=== PATIENT | male | born 1965 | race Caucasian/White ===

== ENCOUNTER 2023-04-16 15:27 | Observation (INO) | payer BC ==
[2023-04-16] MEDS ORDERED: LORazepam 2 MG/ML VIAL IV ONE (15:41)
[2023-04-16 16:05] LABS: Hematocrit 41.4 % (39.6-49.0); Lymphocytes % 36.3 % (15.3-44.8); MCV 88.7 fL (80-100); MPV 8.3 fL (7.6-11.3); Platelets 165 thou/uL (152-406); RBC Red Blood Cell Count 4.67 M/uL (4.33-5.43)
[2023-04-16 16:21] LABS: Magnesium 1.5 mg/dL (1.6-2.4); Troponin High Sensitivity 10.3 pg/mL (<58.9)
[2023-04-16 16:23] LABS: Potassium 2.6 mEq/L (3.5-5.1)
--- NOTE | 2023-04-16 16:39 | RAD REPORT ---
EXAM DESCRIPTION: Lucas Single View04/16/2023 4:08 pm CLINICAL HISTORY: Chest pain;Dyspnea COMPARISON: ABDOMEN ACUTE SERIES dated 11/16/2009 TECHNIQUE: Portable AP view of the chest. FINDINGS: The lungs are clear. Right diaphragmatic eventration again seen. No pneumothorax or effus ion. The cardiomediastinal contours are unremarkable. IMPRESSION: No acute cardiopulmonary process.
[2023-04-16] MEDS ORDERED: POTASSIUM 25 MEQ EFFERV TAB ONE (16:48)
[2023-04-16] MEDS ORDERED: KCL 20 MEQ/100 mL IVPB 100 ML IV ONE (16:49)
--- NOTE | 2023-04-16 17:25 | RAD REPORT ---
EXAM DESCRIPTION: CT - Chest For Pe Angio - 04/16/2023 4:43 pm CLINICAL HISTORY: Chest pain;Dyspnea COMPARISON: Chest Single View dated 04/16/2023 TECHNIQUE: Thin axial CT images of the chest were obtained following administration of 100 mL Isovue 370 IV contrast. Multiplanar reconstructions, and maximum intensity projection reconstructions were generated and reviewed. Exam utilizes a protocol for optimal evaluation of pulmonary arterial tree. All CT scans are performed using dose optimization technique as appropriate and may include automated exposure control or mA/KV adjustment according to patient size. FINDINGS: Pulmonary arteries are normal. No emboli or other suspicious finding. No acute or signific ant aorta findings. Ascending aorta is at the upper limit of normal, measuring 4 cm. No mass or infiltrate in the lung parenchyma. No pleural thickening or pleural effusion. No pneumotho rax. No abnormal mediastinal or hilar masses or lymphadenopathy seen. No chest wall mass or abnormal axill iary lymphadenopathy. Diffuse hepatic parenchymal hypoattenuation suggesting steatosis. IMPRESSION: No evidence of acute central pulmonary emboli. No other acute pulmonary findings. Diffuse hepatic steatosis.
[2023-04-16] MEDS ORDERED: NA CHLORIDE 0.9% 1,000 ML ONE (17:50)
--- NOTE | 2023-04-16 17:52 | EDPHYS ---
[facility] Name: Davion Andrade Age: 58 yrs Sex: Male : 1965 Arrival Date: 04/16/2023 Time: 15:27 Bed 3 Private MD: ED Physician Anurag Adan HPI: 04/16 15:51 This 58 yrs old Male presents to ER via Unassigned with complaints of Palpitations. ms3 15:51 58-year-old male with past medical history of hypertension presents for chest pain that ms3 began 30 minutes prior to arrival. Patient states his heart is fluttering. EMS gave patient 324 mg aspirin, 0.4 mg nitro. Patient states he is having shortness of breath, diarrhea, chills, left arm tingling. Patient denies nausea or vomiting.. Historical: - Allergies: 15:53 No Known Allergies; ld1 - PMHx: 15:53 Hypertensive disorder; ld1 - PSHx: 15:53 None; ld1 - Immunization history:: Adult Immunizations up to date. - Social history:: Smoking status: Patient denies any tobacco usage or history of. Patient/guardian denies using alcohol. ROS: 15:51 Constitutional: Negative for fever, and chills. Neck: Negative for injury, pain, and ms3 swelling. 15:51 Respiratory: Negative for shortness of breath, cough, wheezing, and pleuritic chest pain, Abdomen/GI: Negative for abdominal pain, nausea, vomiting, diarrhea, and constipation, MS/Extremity: Negative for injury and deformity, Skin: Negative for injury, rash, and discoloration. 15:51 Cardiovascular: Positive for chest pain, palpitations. 15:51 All other systems are negative. Exam: 15:51 Constitutional: This is a well developed, well nourished patient who is awake, alert, ms3 and in no acute distress. Head/Face: Normocephalic, atraumatic. Neck: Trachea midline, no cervical lymphadenopathy. Supple, full range of motion without nuchal rigidity, or vertebral point tenderness. No Meningismus. Chest/axilla: Normal chest wall appearance and motion. Nontender with no deformity. 15:51 Respiratory: Lungs have equal breath sounds bilaterally, clear to auscultation and percussion. No rales, rhonchi or wheezes noted. No increased work of breathing, no retractions or nasal flaring. Abdomen/GI: Soft, non-tender, with normal bowel sounds. No distension or tympany. No guarding or rebound. No evidence of tenderness throughout. Skin: Warm, dry with normal turgor. Normal color with no rashes, no lesions, and no evidence of cellulitis. MS/ Extremity: Pulses equal, no cyanosis. Neurovascular intact. Full, normal range of motion. 15:51 Cardiovascular: Rate: tachycardic, Rhythm: regular, Pulses: no pulse deficits are appreciated, Heart sounds: normal, normal S1and S2. 16:33 ECG was reviewed by the Attending Physician. ms3 Vital Signs: 15:52 BP 208 / 108; Pulse 140; Resp 40; Temp 98.1(O); Pulse Ox 100% on R/A; Weight 89 kg; ld1 Height 5 ft. 10 in. ; Pain 8/10; 15:57 BP 163 / 88; Pulse 95; Resp 22; Pulse Ox 100% on R/A; ld1 17:02 BP 160 / 100; Pulse 94; Resp 19; Pulse Ox 99% on R/A; ld1 17:49 BP 155 / 104; Pulse 90; Resp 18; Pulse Ox 99% on R/A; ld1 19:10 BP 160 / 116; Pulse 84; Resp 18; Pulse Ox 100% ; vc1 15:52 Body Mass Index 28.15 (89.00 kg, 177.8 cm) ld1 15:52 Pain Scale: Adult ld1 MDM: 15:35 Patient medically screened. ms3 15:51 Differential diagnosis: abnormal EKG, acute myocardial infarction, anxiety, coronary ms3 artery disease pulmonary embolus. 17:51 Data reviewed: vital signs, nurses notes, lab test result(s), EKG, radiologic studies, ms3 and as a result, I will admit patient. Consideration of Admission/Observation Patient was admitted/placed on observation. Management of patient was discussed with the following: Hospitalist: Randal Figueroa, nurse practitioner on behalf of Dr. Eli. I considered the following discharge prescriptions or medication management in the emergency department Antivirals: At this time, antivirals are not recommended. Independent interpretation of the following test(s) in the Emergency Department EKG: See my EKG interpretation above X-Ray: My interpretation is Chest x-ray image reviewed by me does not reveal pneumonia. Historians other than the Patient: EMS: [facility]. Counseling: I had a detailed discussion with the patient and/or guardian regarding the historical points, exam findings, and any diagnostic results supporting the discharge/admit diagnosis, lab results, radiology results, the need for outpatient follow up, to return to the emergency department if symptoms worsen or persist or if there are any questions or concerns that arise at home. ED course: Discussed labs imaging, EKG with patient and his . They understand and agree with observation. 04/16 15:37 Order name: Basic Metabolic Panel; Complete Time: 16:32 ms3 04/16 15:37 Order name: CBC with Diff; Complete Time: 16:32 ms3 04/16 15:37 Order name: Magnesium; Complete Time: 16:32 ms3 04/16 15:37 Order name: Troponin HS; Complete Time: 16:32 ms3 04/16 15:37 Order name: XRAY Chest (1 view); Complete Time: 17:31 ms3 04/16 15:37 Order name: CT Chest For PE Angio; Complete Time: 17:31 ms3 04/16 15:37 Order name: EKG; Complete Time: 15:38 ms3 04/16 15:37 Order name: Cardiac monitoring; Complete Time: 15:38 ms3 04/16 15:37 Order name: EKG - Nurse/Tech; Complete Time: 15:38 ms3 04/16 15:37 Order name: IV Saline Lock; Complete Time: 15:38 ms3 04/16 15:37 Order name: Labs collected and sent; Complete Time: 16:02 ms3 04/16 15:37 Order name: O2 Per Protocol; Complete Time: 15:38 ms3 04/16 15:37 Order name: O2 Sat Monitoring; Complete Time: 15:39 ms3 EC:33 Rate is 143 beats/min. Rhythm is regular. QRS Graham is Normal. QRS interval is normal. ms3 Clinical impression: Sinus tachycardia. Interpreted by me. Reviewed by me. Administered Medications: 15:38 Drug: NS 0.9% IV 500 ml Route: IV; Rate: bolus; Site: left antecubital; ld1 15:38 Drug: Ativan IVP 1 mg Route: IVP; Site: left antecubital; ld1 17:01 Drug: Potassium PO Effervescent Tablet 50 mEq Route: PO; ko1 17:01 Drug: Potassium Chloride IV 20 mEq Route: IV; Rate: calculated rate; Site: left ko1 antecubital; 18:10 Drug: Magnesium Sulfate IVPB 1 grams Route: IVPB; Infused Over: 1 hrs; Site: left ko1 antecubital; Disposition Summary: 04/16/23 17:51 Hospitalization Ordered Hospitalization Status: Observation ms3 Provider: Maikol Eli ms3 Location: Telemetry/MedSurg (observation) ms3 Condition: Stable ms3 Problem: new ms3 Symptoms: are unchanged ms3 Bed/Room Type: Standard ms3 Room Assignment: 222(04/16/23 19:36) cg Diagnosis - Chest pain, unspecified ms3 - Hypokalemia ms3 Forms: - Medication Reconciliation Form ms3 - SBAR form ms3 - Leadership Thank You Letter ms3 Signatures: Dispatcher [employer] EDMS Randal Figueroa, SHANNANC ALEXANDER-[facility] Lashae Benson RN RN cg Anurag Adan DO DO ms3 Zehra Adan RN RN ld1 Smiley Norton RN RN ko1 Corrections: (The following items were deleted from the chart) 19:36 17:51 ms3 cg
--- NOTE | 2023-04-16 17:52 | ER ---
Nurse's Notes [facility] Name: Davion Andrade Age: 58 yrs Sex: Male : 1965 Arrival Date: 04/16/2023 Time: 15:27 Bed 3 Private MD: Diagnosis: Chest pain, unspecified;Hypokalemia Presentation: 04/16 15:52 Chief complaint: EMS states: toned out for pt "feeling funny." Pt reports feeling heart ld1 racing - states "I have been under a lot of stress." Upon arrival to ER pt HR 140. Coronavirus screen: At this time, the client does not indicate any symptoms associated with coronavirus-19. Ebola Screen: No symptoms or risks identified at this time. Initial Sepsis Screen: Does the patient meet any 2 criteria? No. Patient's initial sepsis screen is negative. Does the patient have a suspected source of infection? No. Patient's initial sepsis screen is negative. Risk Assessment: Do you want to hurt yourself or someone else? Patient reports no desire to harm self or others. Onset of symptoms was April 16, 2023. 15:52 Method Of Arrival: Ambulatory ld1 15:52 Acuity: BRAYDEN 2 ld1 Triage Assessment: 15:30 General: Appears in no apparent distress. comfortable, Behavior is cooperative, ld1 anxious. Pain: Complains of pain in chest Pain does not radiate. Pain currently is 8 out of 10 on a pain scale. Quality of pain is described as sharp, throbbing, Pain began suddenly, Is continuous. EENT: No signs and/or symptoms were reported regarding the EENT system. Neuro: Level of Consciousness is awake, alert, obeys commands, Oriented to person, place, time, situation. Cardiovascular: Capillary refill < 3 seconds Patient's skin is warm and dry. Rhythm is sinus tachycardia. 15:30 Respiratory: Airway is patent Respiratory effort is even, labored. GI:. : No signs ld1 and/or symptoms were reported regarding the genitourinary system. Derm: No signs and/or symptoms reported regarding the dermatologic system. Musculoskeletal: No signs and/or symptoms reported regarding the musculoskeletal system. Historical: - Allergies: 15:53 No Known Allergies; ld1 - PMHx: 15:53 Hypertensive disorder; ld1 - PSHx: 15:53 None; ld1 - Immunization history:: Adult Immunizations up to date. - Social history:: Smoking status: Patient denies any tobacco usage or history of. Patient/guardian denies using alcohol. Screenin:[facility] ED Fall Risk Assessment (Adult) History of falling in the last 3 months, ld1 including since admission No falls in past 3 months (0 pts). Abuse screen: Denies threats or abuse. Denies injuries from another. Nutritional screening: No deficits noted. Tuberculosis screening: No symptoms or risk factors identified. Assessment: 15:58 Reassessment: See triage assessment. Pain: Complains of pain in chest Pain does not ld1 radiate. Pain began suddenly. Cardiovascular: Capillary refill < 3 seconds Patient's skin is warm and dry. 17:49 Reassessment: Patient appears in no apparent distress at this time. No changes from ld1 previously documented assessment. Patient is alert, oriented x 3, equal unlabored respirations, skin warm/dry/pink. Patient states symptoms have improved. Cardiovascular: Rhythm is sinus rhythm. Respiratory: Airway is patent Respiratory effort is even, unlabored. 19:10 Reassessment: No changes from previously documented assessment. Patient and/or family vc1 updated on plan of care and expected duration. Pain level reassessed. Vital Signs: 15:52 BP 208 / 108; Pulse 140; Resp 40; Temp 98.1(O); Pulse Ox 100% on R/A; Weight 89 kg; ld1 Height 5 ft. 10 in. ; Pain 8/10; 15:57 BP 163 / 88; Pulse 95; Resp 22; Pulse Ox 100% on R/A; ld1 17:02 BP 160 / 100; Pulse 94; Resp 19; Pulse Ox 99% on R/A; ld1 17:49 BP 155 / 104; Pulse 90; Resp 18; Pulse Ox 99% on R/A; ld1 19:10 BP 160 / 116; Pulse 84; Resp 18; Pulse Ox 100% ; vc1 15:52 Body Mass Index 28.15 (89.00 kg, 177.8 cm) ld1 15:52 Pain Scale: Adult ld1 ED Course: 15:29 Patient arrived in ED. kj1 15:30 Arm band placed on right wrist. EKG completed in triage. Results shown to MD. ld1 15:35 Anurag Adan DO is Attending Physician. ms3 15:51 Zehra Adan, RN is Primary Nurse. ld1 15:53 Triage completed. ld1 15:58 Patient has correct armband on for positive identification. Placed in gown. Bed in low ld1 position. Call light in reach. Side rails up X2. java architect on. Pulse ox on. NIBP on. Door closed. Noise minimized. Warm blanket given. 15:58 No provider procedures requiring assistance completed. Maintain EMS IV. Dressing ld1 intact. Good blood return noted. Site clean \\T\\ dry. Gauge \\T\\ site: 20g LAC. Patient maintains SpO2 saturation greater than 95% on room air. 16:10 XRAY Chest (1 view) In Process Unspecified. EDMS 16:45 CT Chest For PE Angio In Process Unspecified. EDMS 17:51 Maikol Eli MD is Hospitalizing Provider. ms3 19:10 Report received from Sasha RN. vc1 20:34 Patient admitted, IV remains in place. vc1 Administered Medications: 15:38 Drug: NS 0.9% IV 500 ml Route: IV; Rate: bolus; Site: left antecubital; ld1 15:38 Drug: Ativan IVP 1 mg Route: IVP; Site: left antecubital; ld1 17:01 Drug: Potassium PO Effervescent Tablet 50 mEq Route: PO; ko1 17:01 Drug: Potassium Chloride IV 20 mEq Route: IV; Rate: calculated rate; Site: left ko1 antecubital; 18:10 Drug: Magnesium Sulfate IVPB 1 grams Route: IVPB; Infused Over: 1 hrs; Site: left ko1 antecubital; Medication: 20:34 VIS not applicable for this client. vc1 Outcome: 17:51 Decision to Hospitalize by Provider. ms3 20:34 Admitted to Med/surg accompanied by tech, via wheelchair, room 222, Report called to 1 LAWRENCE Garcia 20:34 Condition: good 20:34 Instructed on the need for admit. 20:34 Patient left the ED. vc1 Signatures: Dispatcher [employer] EDMS Hemant IdalmisAnurag Barcenas DO DO ms3 Zehra Adan RN RN ld1 Irma Bacon RN RN vc1 Errol, Smiley, RN RN ko1
[2023-04-16] MEDS ORDERED: MAGNESIUM SULFATE 1 gm IVPB 1 GM/100 ML BAG IV ONE ×2 (18:09→23:44)
--- NOTE | 2023-04-16 18:11 | P.HP ---
Certification for Inpatient Patient admitted to: Observation With expected LOS: <2 Midnights Patient will require the following post-hospital care: None Practitioner: I am a practitioner with admitting privileges, knowledge of patient current condition, hospital course, and medical plan of care. Services: Services provided to patient in accordance with Admission requirements found in Title 42 Section 412.3 of the Code of Federal Regulations Patient History Date of Service: 04/16/23 Reason for admission: Chest pain, hypokalemia History of Present Illness: 58-year-old male with history of hypertension presents emergency department with chief complaint of chest pain. He reports he has been undergoing a lot of stress both personally and related to his career lately which which he has been having difficulty dealing with. He was driving his car today when he had onset of palpitations, left-sided chest pain rating to his left arm associated with tachycardia. He does report being diaphoretic at that time as well upon arrival to the emergency department his heart rate was 140 sinus tachycardia. He was given IV fluids, Ativan, potassium and magnesium in the emergency department and his symptoms have improved significantly his heart rate is down to 90 he is feeling much better. His labs were significant for sodium 132 potassium 2.6 chloride 94 magnesium 1.5 initial high-sensitivity troponin 10.3. ED provider wishes to admit under observation for ACS rule out, hypokalemia. Patient does take valsartan/HCTZ at home for hypertension which is likely contributing to his hypokalemia. - Past Medical/Surgical History -: Hypertension -: None Psychosocial/ Personal History: Patient lives at home with his family, is self- employed. - Family History Family History: Reviewed- Non-Contributory - Social History Smoking Status: Never smoker Alcohol use: Yes CD- Drugs: No Caffeine use: Yes Place of Residence: Home Review of Systems 10-point ROS is otherwise unremarkable Respiratory: Shortness of Breath Cardiovascular: Chest Pain, Palpitations Physical Examination - Physical Exam General: Alert, In no apparent distress, Oriented x3 HEENT: Atraumatic, PERRLA, Mucous membr. moist/pink, EOMI, Sclerae nonicteric Neck: Supple, 2+ carotid pulse no bruit, No LAD, Without JVD or thyroid abnormality Respiratory: Clear to auscultation bilaterally, Normal air movement Cardiovascular: Regular rate/rhythm, Normal S1 S2 Capillary refill: <2 Seconds Gastrointestinal: Normal bowel sounds, No tenderness Musculoskeletal: No tenderness Integumentary: No rashes Neurological: Normal speech, Normal strength at 5/5 x4 extr, Normal tone, Normal affect - Studies Laboratory Data (last 24 hrs) 04/16/23 04/16/23 15:47 15:47 WBC 5.50 Hgb 14.5 Hct 41.4 Plt Count 165 Sodium 132 L Potassium 2.6 L* BUN 12 Creatinine 1.14 Glucose 145 H Magnesium 1.5 L Assessment and Plan - Plan Assessment: Chest pain rule out ACS Hypokalemia, hypomagnesemia Hypertension Plan: Chest pain rule out ACS Patient ports being under a lot of stress lately, this episode started with fluttering/palpitations and chest followed by chest pain. His symptoms improved after receiving IV Ativan. Chest pain-free at this time. Will monitor telemetry, trend troponins, consult cardiology. He has never had a stress test or heart catheterization in the past. Continue aspirin, statin. As needed benzodiazepines for anxiety. Hypokalemia, hypomagnesemia Replaced in ED, protocol in place, recheck potassium tonight. Hypertension Hold valsartan/HCTZ given hypokalemia, hypomagnesemia. Restart home medications. May need adjustment of medications at discharge. DVT PPX: Lovenox Code status: Full Discharge Plan: Home Plan to discharge in: 24 Hours - Advance Directives Does patient have a Living Will: No Does patient have a Durable POA for Healthcare: No - Code Status/Comfort Care Code Status Assessed: Yes (Full code) Critical Care: No Time Spent Managing Pts Care (In Minutes): 55
[2023-04-16] MEDS ORDERED: ONDANSETRON 4 MG/2 ML VIAL IV PRN (19:57)
[2023-04-16] MEDS ORDERED: ALPRAZOLAM 0.25 MG TABLET PO PRN (19:57)
[2023-04-16] MEDS ORDERED: MELATONIN 5 MG TABLET PO PRN (19:57)
[2023-04-16] MEDS ORDERED: ATORVASTATIN 40 MG TAB PO SCH (21:00)
[2023-04-16 21:03] VITALS: BMI 29.5
[2023-04-16 21:21] VITALS: O2SAT 100
[2023-04-16 22:57] LABS: Magnesium 1.8 mg/dL (1.6-2.4); Potassium 3.6 mEq/L (3.5-5.1)
[2023-04-16] MEDS ORDERED: POTASSIUM 25 MEQ EFFERV TAB PO ONE (23:43)
[2023-04-17 03:50] LABS: Absolute Lymphocytes (CBC) 2.2 K/uL (0.7-4.9); Hematocrit 37.5 % (39.6-49.0); Lymphocytes % 42.2 % (15.3-44.8); MCV 88.9 fL (80-100); MPV 8.5 fL (7.6-11.3); Platelets 156 thou/uL (152-406); RBC Red Blood Cell Count 4.22 M/uL (4.33-5.43)
[2023-04-17 04:20] LABS: Magnesium 2.3 mg/dL (1.6-2.4); Potassium 3.6 mEq/L (3.5-5.1); Thyroid Stimulating Hormone 1.23 uIU/mL (0.358-3.740); Troponin High Sensitivity 17.6 pg/mL (<58.9)
[2023-04-17 08:53] VITALS: BP 154/102; TEMP 97.7
--- NOTE | 2023-04-17 08:55 | P.DS ---
Admission Date: 04/16/23 Discharge Date: 04/17/23 Disposition: ROUTINE DISCHARGE Discharge Condition: GOOD Reason for Admission: Chest pain, hypokalemia Consultations: 1. Cardiology Hospital Course: DIAGNOSES: # Chest Pain, noncardiac # Hypertensive Urgency # Hypokalemia/Hypomagnesemia secondary to Hydrochlorothiazide # Diffuse Hepatic Steatosis HOSPITAL COURSE: Mr. Davion Andrade is a 58 year old male with a past medical history significant for hypertension who was admitted to the [facility] on 04/16/2023 for chest pain. He was admitted to the Medicine service. Upon further evaluation, he reported an episode of chest discomfort directly associated with significant life stressors (relationship and business-related stress). His EKG was without STEMI criteria. His serial troponin was 10.3 -> 17.6 -> 19.0. Her chest x-ray revealed, "no acute cardiopulmonary process." His CT chest angiogram revealed, "No evidence of acute central pulmonary emboli. No other acute pulmonary findings. Diffuse hepatic steatosis." Over the course of his hospitalization, his symptoms have improved significantly. He stated that he felt well and would like to be discharged this morning. Cardiology was consulted and he was evaluated by Dr. Ramey. He has cleared him for discharge with outpatient follow-up. He was offered a Psychiatry consultation for coping with life stressors. He denied suicidal ideation, intention, or plan. He stated that he felt well this morning and he denied any symptoms this morning prior to discharge. On 04/17/2023, he was seen on morning rounds and deemed medically stable for discharge. He was discharged with instructions to schedule follow-up appointments with his PCP (Dr. Kohler), with Cardiology (Dr. Ramey), with Gastroenterology (Dr. Naik), and with Psychiatry (Dr. Nunes). He was provided a prescription for valsartan. He was advised to discontinue his valsartan-hydrochlorothiazide. He was given the opportunity to ask questions and reported no further questions. Furthermore, all questions were answered to the best of my ability. A copy of this discharge summary will be sent to the above providers to facilitate continuity of care. Today, I personally spent 25 minutes on his case, of which greater than 50% of the time was spent in patient education, counseling, and coordination of care as described above. Vital Signs/Physical Exam: Temp Pulse Resp BP Pulse Ox 97.7 F 70 18 154/102 H 98 04/17/23 08:00 04/17/23 08:00 04/17/23 08:00 04/17/23 08:00 04/17/23 08:00 General: Alert, In no apparent distress, Oriented x3 HEENT: Atraumatic, Mucous membr. moist/pink, Sclerae nonicteric Neck: JVD not distended Respiratory: Clear to auscultation bilaterally, Normal air movement Cardiovascular: No edema, Regular rate/rhythm, Normal S1 S2, No gallops, No rubs, No murmurs Gastrointestinal: Normal bowel sounds, Soft and benign, Non-distended, No tenderness, No rebound, No guarding Musculoskeletal: No clubbing Integumentary: No rashes Neurological: Normal speech, Normal affect Laboratory Data at Discharge: WBC 5.20 thou/uL (4.3-10.9) 04/17/23 02:10 Hgb 13.3 g/dL (13.6-17.9) L D 04/17/23 02:10 Hct 37.5 % (39.6-49.0) L 04/17/23 02:10 Plt Count 156 thou/uL (152-406) 04/17/23 02:10 Sodium 133 mEq/L (136-145) L 04/17/23 02:10 Potassium 3.6 mEq/L (3.5-5.1) 04/17/23 02:10 BUN 14 mg/dL (7-18) 04/17/23 02:10 Creatinine 0.85 mg/dL (0.70-1.30) 04/17/23 02:10 Glucose 110 mg/dL (74-106) H 04/17/23 02:10 Magnesium 2.3 mg/dL (1.6-2.4) 04/17/23 02:10 Triglycerides 87 mg/dL (<150) 04/17/23 02:10 Cholesterol 145 mg/dL (<200) 04/17/23 02:10 HDL Cholesterol 45 mg/dL (40-60) 04/17/23 02:10 Cholesterol/HDL Ratio 3.22 04/17/23 02:10 Home Medications: RX: cloNIDine HCL [Clonidine HCl] 1 tab PO DAILY 04/16/23 Aspirin [Aspirin EC 81 MG] 81 mg PO DAILY #30 04/17/23 RX: Valsartan 160 mg PO DAILY #30 tab 04/17/23 New Medications: Aspirin [Aspirin EC 81 MG] 81 mg PO DAILY #30 RX: Valsartan 160 mg PO DAILY #30 tab Physician Discharge Instructions: 1. Please call and schedule a follow-up appointment with your PCP (Dr. Kohler) in 3-5 days 2. Please call and schedule a follow-up appointment with Gastroenterology (Dr. Naik) in 5-7 days - Your imaging showed that you have a fatty liver. Please follow-up with Dr. Naik for further evaluation. 3. Please call and schedule a follow-up appointment with Cardiology (Dr. Ramey) in 5-7 days 4. Please call and schedule a follow-up appointment with Psychiatry (Dr. Ervin) in 5-7 days - Please stop taking valsartan-hydrochlorothiazide. Your prescription has been changed to valsartan only. You were provided a 1 month prescription. Please have your PCP provide any medication refills/adjustments. Diet: AHA Activity: Ad cornelius Followup: Christopher Nunes [ACTIVE - CAN ADMIT] - Juarez Ramey MD [ACTIVE - CAN ADMIT] - Ulysses Naik MD [OUTSIDE PHYSICIAN] - Jona Kohler MD [OUTSIDE PHYSICIAN] - Time spent managing pt's care (in minutes): 25
[2023-04-17] MEDS ORDERED: ENOXAPARIN 40 MG/0.4 ML SQ SCH (09:00)
[2023-04-17] MEDS ORDERED: POTASSIUM CL SA 10 MEQ TAB PO ONE (09:00)
[2023-04-17] MEDS ORDERED: ASPIRIN EC 81 MG TAB PO SCH (09:00)
--- NOTE | 2023-04-17 15:23 | EKG ---
Test Date: 2023-04-16 Test Time: 15:29:57 [employer] Edge Inker Machine: Anish CASTRO MEASUREMENT RESULTS: Intervals: Rate: 143 LA: 96 QRSD: 94 QT: 374 QTc: 577 [place]: P: LA: 96 QRS: 34 T: 68 INTERPRETIVE STATEMENTS: Sinus tachycardia with short LA with premature atrial complexes Junctional ST depression, probably normal Borderline ECG Compared to ECG 09/07/2003 23:13:00 Atrial premature complex(es) now present Short LA interval now present ST (T wave) deviation now present Sinus bradycardia no longer present Electronically Signed On 04-17-23 15:21:12 CDT by Juarez Ramey
--- NOTE | 2023-04-18 17:24 | CON ---
Date of Consultation: 04/17/2023 Reason For Consultation: Chest pain. History Of Present Illness: 58-year-old male, history of hypertension, presented with chest pain, re trosternal, feels heavy and ache like while he was driving the car and had some palpitations, had to stop. Pain became severe. So he presented to the emergency room. Patient denies having any exertio nal chest pain at that time or shortness of breath. No nausea, vomiting, or diaphoresis. Past Medical History: Hypertension. Medications: Refer to reconciliation sheet for detailed list. Allergies: NO KNOWN DRUG ALLERGIES. Family History: No premature coronary artery disease or cancer. Social History: Does not smoke or drink. Does not use any drugs. Review of Systems: All systems were reviewed, they were negative except what was mentioned in HPI. Physical Examination: Vital Signs: Reviewed. Head and Neck: Pupils are equal, reactive to light. Intact eye movements. No JVD. No cervical lym phadenopathy. Neck is supple. Thyroid is not enlarged. Lungs: Clear to auscultation bilaterally. No rhonchi, wheezing, or crackles. No accessory muscle u se. Heart: Regular rate and rhythm. No extra sounds. Abdomen: Soft, nontender. Bowel sounds positive. No organomegaly. No masses or hernia. No rigidi ty or rebound. Extremities: No edema, clubbing, or cyanosis. Intact pulses. Skin: No rash. No nodule. Neurologic: Alert, awake, oriented x3. No acute focal deficits appreciated. Lymph Nodes: No cervical or axillary lymphadenopathy. Investigations: BUN 14, creatinine 0.85. Cardiac enzymes x3 are negative. Potassium 3.6 and hemogl obin 13.3. Assessment And Recommendations: 1.Chest pain. Cardiac enzymes are negative. Patient's pain is not very typical from cardiology sta ndpoint. I recommend the patient can be released and follow up with me as an outpatient. A CT PE pr otocol was negative for pulmonary embolus. We will plan doing stress test and an echo as an outpatie nt. 2.Hypokalemia. This is resolved. 3.Mild dehydration. This is resolved. SR/MODL Voice ID: [id number] Report ID: [id number]
== END 2023-04-17 10:18 | disposition home or self-care (01) ==
LOC: ER 15:27 → ERHOLD 18:04 → 2ND 19:47
PROVIDERS: ADMIT Internal Medicine; ATTEND Internal Medicine
DX: R07.9 Chest pain, unspecified (principal); E87.6 Hypokalemia; I10 Essential (primary) hypertension; E86.0 Dehydration; I16.0 Hypertensive urgency; K76.0 Fatty (change of) liver, not elsewhere classified; Z63.79 Other stressful life events affecting family and household
CPT/HCPCS: 93005; 85025 ×2; 80048 ×2; 36415; 83735 ×3; 84132; 80061; 84443; 84484 ×3; 84439; 71275; 71045; 96375; 96374; 99285; Q9967; J3480; J3475 ×2; J1650; J7030; G0378

== ENCOUNTER 2023-04-19 15:19 | Emergency (ER) | payer BC ==
--- OUTSIDE RECORDS SUMMARY | 2023-04-19 15:22 | XMS REPORT | Continuity of Care Document ---
:1965 Author Organization [facility] t Address [address] [place] [address] Care Team Providers Name Role Phone JAIMEE URENA Attending Clinician Unavailable Payers Payer Name Policy Type Policy Number Effective Date Expiration Date Kp dinh [facility] [id number] 2017 00:00:00 [facility] [id number] 2016 [facility] 00:00:00 Problems This patient has no known problems. Allergies, Adverse Reactions, Alerts Allergy Allergy Status Severity Reaction(s) Onset Inactive Treating Comm ents Source Name Type Date Date Clinician NO KNOWN Drug Active [facility] Class [facility] Medications This patient has no known medications. Procedures This patient has no known procedures. Encounters Start End Encounter Admission Attending Care Care Encounter Source Date/Time Date/Time Type Type Clinicians Facility Department ID 2021-04-21 2021-04-21 Outpatient [facility] [id number] [facility] 16:00:00 16:00:00 [id number] [facility] 2021-04-21 2021-04-21 Outpatient Violette URENA [facility] [id number] [facility] 16:00:00 16:00:00 JAIMEE [facility] Results This patient has no known results.
[2023-04-19 16:34] LABS: Absolute Lymphocytes (CBC) 1.5 K/uL (0.7-4.9); Hematocrit 39.1 % (39.6-49.0); Lymphocytes % 35.1 % (15.3-44.8); MCV 89.7 fL (80-100); MPV 8.4 fL (7.6-11.3); Platelets 156 thou/uL (152-406); RBC Red Blood Cell Count 4.35 M/uL (4.33-5.43)
[2023-04-19 16:51] LABS: Magnesium 1.7 mg/dL (1.6-2.4); Potassium 3.4 mEq/L (3.5-5.1); Troponin High Sensitivity 8.4 pg/mL (<58.9)
--- NOTE | 2023-04-19 17:20 | RAD REPORT ---
EXAM DESCRIPTION: RAD - Chest Single View - 04/19/2023 5:09 pm CLINICAL HISTORY: NEAR SYNCOPE COMPARISON: Chest Single View dated 04/16/2023; ABDOMEN ACUTE SERIES dated 11/16/2009 FINDINGS: Lines: None. Lungs: No evidence of edema or pneumonia. Pleural: No significant pleural effusions or pneumothorax. Cardiac: The heart size is within normal limits. Mediastinum: Within normal limits. Bones: No acute fractures. Other: None IMPRESSION: No acute cardiopulmonary disease.
[2023-04-19] MEDS ORDERED: POTASSIUM 25 MEQ EFFERV TAB ONE (17:37)
--- NOTE | 2023-04-19 17:52 | RAD REPORT ---
EXAM DESCRIPTION: CTAngio Aorta For Dissection - 04/19/2023 5:19 pm CLINICAL HISTORY: near syncope COMPARISON: No comparisons TECHNIQUE: CTA of the chest, abdomen, and pelvis was performed. MIPS of the aorta were created. All CT scans are performed using dose optimization technique as appropriate and may include automated exposure control or mA/KV adjustment according to patient size. FINDINGS: Thorax: Chest Wall: No abnormal mass Lungs: No acute abnormality. Pleura: No effusions or pneumothorax. Merlyn/Mediastinum: No lymphadenopathy. Aorta/Pulmonary Arteries: Unremarkable Heart: Normal size. Mild coronary artery calcifications. Abdomen/Pelvis: Liver: Hepatic steatosis Biliary: No biliary ductal dilatation. Stomach: No significant focal abnormality. Duodenum: No significant focal abnormality. Pancreas: No significant abnormality. Spleen: No significant abnormality. Adrenal: No suspicious lesions. Kidney/ureter: No hydronephrosis. No renal calculi. Retroperitoneum: No retroperitoneal adenopathy. Vascular: No aneurysm. Bowel: No significant focal abnormality. Peritoneum: Small fat containing inguinal hernias. Bladder: Grossly unremarkable. Reproductive: Mild prostatomegaly. Bones: No acute fracture. Other: n/a IMPRESSION: No aortic aneurysm or aortic dissection identified. No acute findings within the chest, abdomen, or pelvis. A few incidental findings as noted above.
--- NOTE | 2023-04-19 19:43 | EDPHYS ---
Physician Documentation [facility] Name: Davion Andrade Age: 58 yrs Sex: Male : 1965 Arrival Date: 04/19/2023 Time: 15:19 Bed 3 Private MD: ED Physician Pepito Armando HPI: 04/19 16:10 This 58 yrs old Male presents to ER via Ambulatory with complaints of Shakes, Blood cp Pressure Problem, Chest Tightness. 16:10 Patient is a 58-year-old male with past medical history significant for hypertension cp who presents to the emergency department with reported near syncopal episode. Patient reports he was driving this afternoon while talking to his granddaughter when he started to shake all over, felt lightheaded, started having some chest tightness and felt like he was about to pass out. 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 Patient reports he has a appointment with Dr. Prabhakar next week. Patient denies any current chest pain but reports that he has noticed his blood pressure has been elevated here recently and has concern that the prescribed clonidine and valsartan is causing adverse side effects. Historical: - Allergies: 16:04 No Known Allergies; iw - PMHx: 16:03 Hypertensive disorder; iw - Immunization history:: Adult Immunizations up to date. - Social history:: Smoking status: Patient denies any tobacco usage or history of. ROS: 16:15 Constitutional: Negative for body aches, chills, fever, poor PO intake. cp 16:15 Eyes: Negative for injury, pain, redness, and discharge. cp 16:15 Cardiovascular: Positive for chest pain, Negative for edema, palpitations. 16:15 Respiratory: Negative for cough, wheezing. 16:15 Neuro: Positive for near syncope, Negative for altered mental status, headache, numbness, weakness. 16:15 Abdomen/GI: Negative for abdominal pain, vomiting, diarrhea, constipation, black/tarry cp stool, rectal bleeding. 16:15 : Negative for urinary symptoms. 16:15 All other systems are negative. Exam: 16:20 Constitutional: The patient appears in no acute distress, alert, awake, comfortable, cp non-diaphoretic, non-toxic, well developed, well nourished. 16:20 Head/Face: Normocephalic, atraumatic. cp 16:20 Eyes: Periorbital structures: appear normal, Conjunctiva: normal, no exudate, no injection, Sclera: no appreciated abnormality, Lids and lashes: appear normal, bilaterally. 16:20 ENT: External ear(s): are unremarkable, Nose: is normal, Mouth: Lips: moist, Oral mucosa: pink and intact, moist, Posterior pharynx: is normal, airway is patent, no erythema, no exudate. 16:20 Neck: ROM/movement: is normal, is supple, without pain, no range of motions limitations, no meningismus, no nuchal rigidity. 16:20 Chest/axilla: Inspection: normal. 16:20 Cardiovascular: Rate: normal, Rhythm: regular, Edema: is not appreciated, JVD: is not appreciated. 16:20 Respiratory: the patient does not display signs of respiratory distress, Respirations: normal, no use of accessory muscles, no retractions, labored breathing, is not present, Breath sounds: are clear throughout, no decreased breath sounds, no stridor, no wheezing. 16:20 Abdomen/GI: Inspection: abdomen appears normal, Palpation: abdomen is soft and non-tender, in all quadrants. 16:20 Back: pain, is absent, ROM is normal. 16:20 Neuro: Orientation: to person, place \T\ time. Mentation: is normal, Cerebellar function: is grossly normal, Motor: moves all fours, strength is normal, Sensation: no obvious gross deficits. 16:58 ECG was reviewed by the Attending Physician. cp Vital Signs: 16:00 BP 144 / 99; Pulse 67; Resp 16; Temp 98.1; Pulse Ox 100% on R/A; iw 17:30 BP 130 / 95; Pulse 60; Resp 17; Pulse Ox 98% on R/A; Pain 0/10; hb 18:07 BP 131 / 92; Pulse 62; Resp 15; Pulse Ox 98% on R/A; Pain 0/10; hb 18:44 BP 124 / 88; Pulse 68; Resp 25; Pulse Ox 98% on R/A; hb 19:15 BP 140 / 101; Pulse 64; Resp 19 S; Pulse Ox 100% on R/A; ha1 19:52 BP 148 / 93; Pulse 64; Resp 16; Temp 97.9; Pulse Ox 100% on R/A; Pain 0/10; pf1 17:30 Pain Scale: Adult hb 18:07 Pain Scale: Adult hb 19:52 Pain Scale: Adult pf1 MDM: 16:04 Patient medically screened. 19:42 Data reviewed: vital signs, nurses notes, lab test result(s), EKG, radiologic studies, cp CT scan, plain films. 19:42 Consideration of Admission/Observation Escalation of care including cp admission/observation considered. 04/19 16:06 Order name: Basic Metabolic Panel; Complete Time: 16:56 / 16:57 Interpretation: Normal except: NA 135; K 3.4; ANION GAP 3.4; GLUC 120; CA 8.3. / 16:06 Order name: CBC with Diff; Complete Time: 16:44 04/19 16:45 Interpretation: Normal except: HGB 13.3; HCT 39.1. 04/19 16:06 Order name: D-Dimer; Complete Time: 16:44 04/19 16:45 Interpretation: Reviewed. 04/19 16:06 Order name: Magnesium; Complete Time: 16:56 04/19 16:06 Order name: Troponin HS; Complete Time: 16:56 04/19 16:57 Interpretation: Reviewed. / 18:50 Order name: Troponin High Sensitivity: repeat \T\1915; Complete Time: 19:41 / 19:41 Interpretation: Reviewed. 04/19 16:24 Order name: Chest Single View; Complete Time: 17:56 EDRI 04/19 17:56 Interpretation: Report reviewed. 04/19 17:00 Order name: CT Aorta for Dissection; Complete Time: 17:56 / 17:56 Interpretation: Report reviewed. 04/19 16:06 Order name: EKG; Complete Time: 16:06 04/19 16:06 Order name: Cardiac monitoring; Complete Time: 16:53 / 16:06 Order name: EKG - Nurse/Tech; Complete Time: 16:53 04/19 16:06 Order name: IV Saline Lock; Complete Time: 16:53 04/19 16:06 Order name: Labs collected and sent; Complete Time: 16:53 04/19 16:06 Order name: O2 Per Protocol; Complete Time: 16:53 04/19 16:06 Order name: O2 Sat Monitoring; Complete Time: 16:53 cp EC:58 Rate is 58 beats/min. Rhythm is regular. MS interval is normal. QRS interval is cp prolonged at 110 msec. QT interval is normal. T waves are Inverted in leads III, aVR. Interpreted by me. Reviewed by me. Administered Medications: 17:29 Drug: Potassium PO Effervescent Tablet 25 mEq Route: PO; kc6 19:00 Follow up: Response: No adverse reaction; Marked relief of symptoms pf1 Disposition Summary: 04/19/23 19:42 Discharge Ordered Location: Home cp Problem: an ongoing problem cp Symptoms: have improved cp Condition: Stable cp Diagnosis - Syncope Near cp - Hypertensive heart disease without heart failure cp - Hypokalemia cp Followup: cp - With: Private Physician - When: 2 - 3 days - Reason: Recheck today's complaints Discharge Instructions: - Discharge Summary Sheet cp - High-Fiber Eating Plan cp - Potassium Content of Foods cp - Hypertension, Adult cp - Near-Syncope cp - Aspirin and Your Heart cp - Hypokalemia cp - How to Take Your Blood Pressure cp Forms: - Medication Reconciliation Form cp - Thank You Letter cp - Antibiotic Education cp - Prescription Opioid Use cp - Patient Portal Instructions cp - Leadership Thank You Letter cp Signatures: Dispatcher [employer] Leydi Velásquez, RN RN Chiki Tinoco PA PA cp Romelia Herron RN RN hb Campbell, Kaitlyn, RN RN kc6 Chitra Baum RN pf1 Corrections: (The following items were deleted from the chart) 16:21 16:06 Chest Single View+RAD.RAD.BRZ ordered. EDMS EDMS
--- NOTE | 2023-04-19 19:43 | ER ---
Nurse's Notes [facility] Name: Davion Andrade Age: 58 yrs Sex: Male : 1965 Arrival Date: 04/19/2023 Time: 15:19 Bed 3 Private MD: Diagnosis: Syncope Near;Hypertensive heart disease without heart failure;Hypokalemia Presentation: 04/19 16:00 Chief complaint: Patient states: i was here 3-4 days ago and I thought i was having a iw heart attack , my potassium was really low, last night my BP was high 201/128 . today i got to shaking and felt dizzy like i was gonna black out, felt the same as the other day. Coronavirus screen: At this time, the client does not indicate any symptoms associated with coronavirus-19. Ebola Screen: Patient negative for fever greater than or equal to 101.5 degrees Fahrenheit, and additional compatible Ebola Virus Disease symptoms Patient denies exposure to infectious person. Patient denies travel to an Ebola-affected area in the 21 days before illness onset. No symptoms or risks identified at this time. Initial Sepsis Screen: Does the patient meet any 2 criteria? No. Patient's initial sepsis screen is negative. Does the patient have a suspected source of infection? No. Patient's initial sepsis screen is negative. Risk Assessment: Do you want to hurt yourself or someone else? Patient reports no desire to harm self or others. Onset of symptoms was April 19, 2023. 16:00 Acuity: BRAYDEN 3 iw 16:00 Method Of Arrival: Ambulatory iw Historical: - Allergies: 16:04 No Known Allergies; iw - PMHx: 16:03 Hypertensive disorder; iw - Immunization history:: Adult Immunizations up to date. - Social history:: Smoking status: Patient denies any tobacco usage or history of. Screenin:15 [facility] ED Fall Risk Assessment (Adult) Score/Fall Risk Level 0 - 2 = Low Risk hb Oriented to surroundings, Maintained a safe environment. Abuse screen: Denies threats or abuse. Denies injuries from another. Nutritional screening: No deficits noted. Tuberculosis screening: No symptoms or risk factors identified. Assessment: 16:05 General: Appears in no apparent distress. Behavior is calm, cooperative. Pain: Denies hb pain. Neuro: Level of Consciousness is awake, alert, obeys commands, Oriented to person, place, time, situation, Reports dizziness. Cardiovascular: Patient's skin is warm and dry. Respiratory: Respiratory effort is even, unlabored, Respiratory pattern is regular, symmetrical. GI: No signs and/or symptoms were reported involving the gastrointestinal system. : No signs and/or symptoms were reported regarding the genitourinary system. EENT: No signs and/or symptoms were reported regarding the EENT system. Derm: Skin is pink, warm \T\ dry. Musculoskeletal: No signs and/or symptoms reported regarding the musculoskeletal system. 17:30 Reassessment: Patient appears in no apparent distress at this time. Patient and/or hb family updated on plan of care and expected duration. Pain level reassessed. Patient is alert, oriented x 3, equal unlabored respirations, skin warm/dry/pink. 18:07 Reassessment: Patient appears in no apparent distress at this time. Patient and/or hb family updated on plan of care and expected duration. Pain level reassessed. Patient is alert, oriented x 3, equal unlabored respirations, skin warm/dry/pink. 18:44 Reassessment: Patient appears in no apparent distress at this time. Patient and/or hb family updated on plan of care and expected duration. Pain level reassessed. Patient is alert, oriented x 3, equal unlabored respirations, skin warm/dry/pink. 19:00 General: Appears in no apparent distress. comfortable, well groomed, well developed. pf1 19:00 Pain: Denies pain. Neuro: Level of Consciousness is awake, alert, obeys commands, pf1 Oriented to person, place, time, situation. Cardiovascular: Capillary refill < 3 seconds Patient's skin is warm and dry. Respiratory: Airway is patent Respiratory effort is even, unlabored, Respiratory pattern is regular, symmetrical. GI: No deficits noted. No signs and/or symptoms were reported involving the gastrointestinal system. : No deficits noted. No signs and/or symptoms were reported regarding the genitourinary system. EENT: No deficits noted. No signs and/or symptoms were reported regarding the EENT system. Derm: No deficits noted. No signs and/or symptoms reported regarding the dermatologic system. Musculoskeletal: No deficits noted. No signs and/or symptoms reported regarding the musculoskeletal system. Vital Signs: 16:00 BP 144 / 99; Pulse 67; Resp 16; Temp 98.1; Pulse Ox 100% on R/A; iw 17:30 BP 130 / 95; Pulse 60; Resp 17; Pulse Ox 98% on R/A; Pain 0/10; hb 18:07 BP 131 / 92; Pulse 62; Resp 15; Pulse Ox 98% on R/A; Pain 0/10; hb 18:44 BP 124 / 88; Pulse 68; Resp 25; Pulse Ox 98% on R/A; hb 19:15 BP 140 / 101; Pulse 64; Resp 19 S; Pulse Ox 100% on R/A; ha1 19:52 BP 148 / 93; Pulse 64; Resp 16; Temp 97.9; Pulse Ox 100% on R/A; Pain 0/10; pf1 17:30 Pain Scale: Adult hb 18:07 Pain Scale: Adult hb 19:52 Pain Scale: Adult pf1 ED Course: 15:21 Patient arrived in ED. ts1 15:23 Chiki Martinez PA is PHCP. cp 15:23 Pepito Armando MD is Attending Physician. cp 16:03 Triage completed. iw 16:03 Arm band placed on. iw 16:20 Patient has correct armband on for positive identification. Provided Education on: . hb Client placed on continuous cardiac and pulse oximetry monitoring. NIBP monitoring applied. 16:20 Inserted saline lock: 20 gauge in right antecubital area, using aseptic technique. hb Blood collected. Patient maintains SpO2 saturation greater than 95% on room air. 16:53 Romelia Herron, RN is Primary Nurse. hb 17:10 Chest Single View In Process Unspecified. EDMS 17:21 CT Aorta for Dissection In Process Unspecified. EDMS 19:52 No provider procedures requiring assistance completed. IV discontinued, intact, pf1 bleeding controlled, No redness/swelling at site. Pressure dressing applied. Administered Medications: 17:29 Drug: Potassium PO Effervescent Tablet 25 mEq Route: PO; kc6 19:00 Follow up: Response: No adverse reaction; Marked relief of symptoms pf1 Medication: 17:31 VIS not applicable for this client. hb Outcome: 19:42 Discharge ordered by . cp 19:52 Discharged to home ambulatory, with family. pf1 19:52 Condition: improved 19:52 Discharge instructions given to patient, Instructed on discharge instructions, follow up and referral plans. Demonstrated understanding of instructions, follow-up care. 19:53 Patient left the ED. pf1 Signatures: Dispatcher [employer] EDLeydi Mcleod RN Chiki Chang PA PA cp Baxter, Heather, RN RN Juany Sneed RN RN ha1 Kay Fuller RN RN kc6 Chitra Baum RN RN pf1 Aurora Pete PAS PAS ts1 Corrections: (The following items were deleted from the chart) 16:21 16:18 In radiology for Chest Single View+RAD.RAD.BRZ. EDCA EDMS
[2023-04-19 20:21] VITALS: O2SAT 100
[2023-04-19 20:22] VITALS: BP 148/93; TEMP 97.9
--- NOTE | 2023-04-21 16:51 | EKG ---
Test Date: 2023-04-19 Test Time: 16:50:16 Promotional Model: HB MEASUREMENT RESULTS: Intervals: Rate: 58 IN: 182 QRSD: 110 QT: 440 QTc: 431 [place]: P: 35 IN: 182 QRS: 2 T: 13 INTERPRETIVE STATEMENTS: Sinus bradycardia Otherwise normal ECG Compared to ECG 04/16/2023 15:29:57 Sinus tachycardia no longer present Atrial premature complex(es) no longer present Short IN interval no longer present ST (T wave) deviation no longer present Electronically Signed On 04-21-23 16:45:31 CDT by Juarez Ramey
== END 2023-04-19 19:53 | disposition home or self-care (01) ==
LOC: ER 15:19
DX: R55 Syncope and collapse (principal); I11.9 Hypertensive heart disease without heart failure; E87.6 Hypokalemia; I10 Essential (primary) hypertension
CPT/HCPCS: 93005; 85025; 80048; 36415; 83735; 85379; 84484 ×2; 71275; 74175; 71045; 99284; Q9967

== ENCOUNTER 2023-04-22 20:06 | Observation (INO) | payer BC ==
--- OUTSIDE RECORDS SUMMARY | 2023-04-22 20:15 | XMS REPORT | Continuity of Care Document ---
:1965 Author Organization [facility] t Address [address] [facility]. [address] [place] [address] Care Team Providers Name Role Phone DEBRA WARREN Primary Care Physician Unavailable DEBRA WARREN Attending Clinician Unavailable Alexy SOTO, Debra Attending Clinician JAIMEE URENA Attending Clinician Unavailable Payers Payer Name Policy Type Policy Number Effective Date Expiration Date S fabrizio [facility] [id number] 2017 00:00:[address] [facility] [id number] 2016 [facility] 00:00:00 Problems Condition Condition Condition Status Onset Resolution Last Treating Co mments Source Name Details Category Date Date Treatment Clinician Date Elevated Elevated Disease Active Unive rs BP BP 01-06 ity of 00:00: [address] Allergic Allergic Disease Active Unive rs rhinitis, rhinitis, 01-06 [place] allergic [place]ical rhinitis rhinitis Branch trigger, trigger, unspecifie unspecifie d rhinitis d rhinitis seasonalit seasonalit y y Maxillary Maxillary Disease Active Uni vers sinusitis, sinusitis, 01-06 it y [place]spec[place] Medical chronicity chronicity Br anch Allergies, Adverse Reactions, Alerts Allergy Allergy Status Severity Reaction(s) Onset Inactive Treating Comm ents Source Name Type Date Date Clinician NO KNOWN Drug Active Univers ALLERGIE Class ity of S [facility] Social History Social Habit Start Date Stop Date Quantity Comments Source History of tobacco Snuff User Univer sity of use [facility] Gender identity Universit y of [facility] Sexual orientation Univer sity of [facility] Alcohol intake 2017-01-14 2017-01-14 Current drinker Unive rsity of 00:00:00 00:00:00 of alcohol [place] [facility]finding[facility] [place] Tobacco use and 2017-01-06 2017-01-06 User of Universit y of exposure 00:00:00 00:00:00 smokeless [facility] tobacco [place] History of Social 2017-01-06 2017-01-06 Univers ity of function 00:00:00 00:00:00 [facility] Tobacco Comment 2017-01-06 2017-01-06 snuff Universit y of 00:00:00 00:00:00 occasionally; [place] [facility] [place] Alcohol Comment 2017-01-06 2017-01-06 variable: 1-6 Univer sity of 00:00:00 00:00:00 mixed weekly [place] [facility] [place] Sex Assigned At [birth year] Universit y of 00:00:00 00:00:00 [facility] Smoking Status Start Date Stop Date Source Never smoked tobacco [facility] Medications Ordered Filled Start Stop Current Ordering Indication Dosage Frequency Signature Comments Components Source Medication Medication Date Date Medication? Clinician (SIG) Name Name amlodipine- Yes 1{capsu Take 1 U nivers benazepril 3-25 le} capsule by ity of 5-20 mg per 00:00: mouth [place] capsule 00 daily. Medical MUST BE Branch SEEN FOR FURTHER REFILLS amlodipine- Yes [id number] 1{capsu Take 1 Univers benazepril 6-19 le} capsule by ity of 5-10 mg per 00:00: mouth [place] capsule 00 daily. Medical Follow up Branch required for additional RF fluticasone Yes [id number] 2{spray Use 2 Univers 50 5-23 } Sprays in ity of mcg/actuati 00:00: each [place] on nasal 00 nostril Medical spray daily. Branch azelastine Yes [id number] 1{spray Use 1 Univers 137 mcg 5-23 } [place] in ity of (0.1 %) 00:00: each [place] nasal spray 00 nostril 2 Med ical (two) Branch times daily. Use in each nostril as directed Procedures This patient has no known procedures. Encounters Start End Encounter Admission Attending Care Care Encounter Source Date/Time Date/Time Type Type Clinicians Facility Department ID 2023-04-23 2023-04-23 [id number] Univers 09:00:00 09:00:00 [facility] 2023-04-21 2023-04-21 Telephone Alexy [facility] [id number] Univers 00:00:00 00:00:00 [facility] [id number] [facility] [id number] Ghanshyam as DALI?BLEA [id number] [address] MEDICAL OFFICE BUILDING 2021-04-21 2021-04-21 Outpatient [facility] [id number] Univers 16:00:00 16:00:00 [id number] [facility] 2021-04-21 2021-04-21 Outpatient Violette AYANNA [facility] [id number] Univers 16:00:00 16:00:00 JAIMEE [facility] Results This patient has no known results. Notes Date/Time Note Provider Source 2023-04-21 Formatting of this note might be differe nt from the original. Bessy Coello LVN [facility] 09:46:52-00:00 Notified Karen that we do no t have an earlier appointment. Patient is scheduled 04/23/23 at 9 am. She verbalized understanding. 2023-04-21 Formatting of this note might be differe nt from the original. Juana Rendon [facility] 08:21:08-00:00 Karen is calling in regards to Davion. He was in the hospital over the weekend for high blood pressure issues. A hospital follow up is scheduled for 04/23/23 but wants to know if he can be seen sooner than that? She would like to speak to a nurse. Please call and advise thanks. Electronically signed by Juana Rendon at 8:24 AM CDT
--- NOTE | 2023-04-22 21:29 | RAD REPORT ---
EXAM DESCRIPTION: Lucas Single View04/22/2023 9:17 pm CLINICAL HISTORY: Chest pain COMPARISON: April 19, 2023 FINDINGS: The lungs appear clear of acute infiltrate. The heart is borderline enlarged IMPRESSION: No acute abnormalities displayed
[2023-04-22 21:38] LABS: Absolute Lymphocytes (CBC) 1.7 K/uL (0.7-4.9); Hematocrit 41.9 % (39.6-49.0); Lymphocytes % 19.9 % (15.3-44.8); MCV 90.5 fL (80-100); MPV 8.4 fL (7.6-11.3); Platelets 206 thou/uL (152-406); RBC Red Blood Cell Count 4.63 M/uL (4.33-5.43)
[2023-04-22 21:49] LABS: Protime INR 0.95
[2023-04-22 21:56] LABS: Albumin 3.7 g/dL (3.4-5.0); Bilirubin Direct 0.1 mg/dL (0-0.2); Bilirubin Indirect, Calculated 0.2 mg/dL (0.2-0.8); Bilirubin Total 0.3 mg/dL (0.2-1.0); Magnesium 2.2 mg/dL (1.6-2.4); Potassium 4.1 mEq/L (3.5-5.1); Protein, Total 7.2 g/dL (6.4-8.2)
--- NOTE | 2023-04-22 22:34 | ER ---
Nurse's Notes [facility] Name: Davion Andrade Age: 58 yrs Sex: Male : 1965 Arrival Date: 04/22/2023 Time: 20:06 Bed 18 Private MD: Tyrone Richardson B Diagnosis: Recurrent chest pain, palpitations, Presentation: 04/22 20:25 Chief complaint: Patient states: CP X 1 HR AGO, TIGHTNESS, CHEST WALL, DOES NOT rv RADIATE. DENIES SOB. Coronavirus screen: At this time, the client does not indicate any symptoms associated with coronavirus-19. Ebola Screen: No symptoms or risks identified at this time. Initial Sepsis Screen: Does the patient meet any 2 criteria? No. Patient's initial sepsis screen is negative. Does the patient have a suspected source of infection? No. Patient's initial sepsis screen is negative. Risk Assessment: Do you want to hurt yourself or someone else? Patient reports no desire to harm self or others. Onset of symptoms was April 22, 2023. 20:25 Method Of Arrival: Ambulatory rv 20:25 Acuity: BRAYDEN 2 rv Triage Assessment: 20:28 General: Appears uncomfortable, Behavior is anxious. Pain: Complains of pain in chest. rv Neuro: Level of Consciousness is awake, alert, obeys commands, Oriented to person, place, time, situation. Cardiovascular: Capillary refill < 3 seconds Patient's skin is warm and dry. Respiratory: Airway is patent Respiratory effort is even, unlabored, Breath sounds are clear bilaterally. Derm: Skin is intact. Historical: - Allergies: 20:28 No Known Allergies; rv - PMHx: 20:28 Hypertensive disorder; rv - PSHx: 20:28 None; rv - Immunization history:: Adult Immunizations up to date. - Social history:: Smoking status: Patient denies any tobacco usage or history of. - Family history:: not pertinent. Screenin/07 00:00 [facility] ED Fall Risk Assessment (Adult) History of falling in the last 3 months, rv including since admission No falls in past 3 months (0 pts) Score/Fall Risk Level 0 - 2 = Low Risk Oriented to surroundings, Maintained a safe environment, Educated pt \T\ family on fall prevention, incl call for assistance when getting out of bed, Assessed \T\ reinforced patient's understanding of fall precautions, Provided non-skid footwear, Hourly rounding (assess needs \T\ fall precautionary measures) done, Used ambulatory aids as needed (educated on \T\ assisted with), Used gait belt as appropriate. 00:00 Abuse screen: Denies threats or abuse. Denies injuries from another. Nutritional rv screening: No deficits noted. Tuberculosis screening: No symptoms or risk factors identified. Assessment: 00:00 General: Appears comfortable, Behavior is calm, cooperative. rv 00:00 Pain: Denies pain. Pain does not radiate. Pain began not at this time. Neuro: Level of rv Consciousness is awake, alert, obeys commands, Oriented to person, place, time, situation. Cardiovascular: Capillary refill < 3 seconds Patient's skin is warm and dry. Vital Signs: 04/22 20:25 BP 176 / 116; Pulse 86; Resp 18; Temp 98.4; Pulse Ox 100% ; Weight 97.52 kg; Height 6 rv ft. 0 in. ; 04/23 00:00 BP 140 / 98; Pulse 62; Resp 16; Temp 98; Pulse Ox 100% ; rv 04/22 20:25 Body Mass Index 29.16 (97.52 kg, 182.88 cm) rv [place] Coma Score: 00:00 Eye Response: spontaneous(4). Motor Response: obeys commands(6). Verbal Response: rv oriented(5). Total: 15. ED Course: 04/22 20:08 Patient arrived in ED. mr 20:09 Tyrone Richardson MD is Private Physician. mr 20:20 Raghu Mckinnon MD is Attending Physician. sp4 20:28 Triage completed. rv 20:29 Arm band placed on right wrist. rv 21:19 XRAY Chest (1 view) In Process Unspecified. EDMS 22:32 Farhat Steiner is Hospitalizing Provider. sp4 04/23 00:00 No provider procedures requiring assistance completed. Inserted saline lock: 20 gauge rv in right antecubital area, using aseptic technique. Patient maintains SpO2 saturation greater than 95% on room air. 01:36 Helio Williamson RN is Primary Nurse. rv 01:37 Provided Education on: hypertension. rv 01:37 Patient has correct armband on for positive identification. Client placed on continuous rv cardiac and pulse oximetry monitoring. NIBP monitoring applied. monitoring specialist on. 01:37 Patient admitted, IV remains in place. rv Administered Medications: 00:54 Not Given (not appropriate at this timee): cloNIDine PO 0.3 mg PO once rv Medication: 00:55 VIS not applicable for this client. rv Outcome: 04/22 22:33 Decision to Hospitalize by Provider. sp4 04/23 01:37 Admitted to ER Hold. Please see [facility] for further documentation. rv Condition: good Instructed on the need for admit. 07:58 Patient left the ED. kc6 Signatures: Dispatcher [employer] EDMA Leslie MorseHelio RN RN Kay Harrison RN RN kc6 Raghu Mckinnon MD MD sp4
--- NOTE | 2023-04-22 22:34 | EDPHYS ---
Physician Documentation [facility] Name: Davion Andrade Age: 58 yrs Sex: Male : 1965 Arrival Date: 04/22/2023 Time: 20:06 Bed 18 Private MD: Tyrone Rihcardson B ED Physician Raghu Mckinnon HPI: 04/22 20:20 This 58 yrs old Male presents to ER via Unassigned with complaints of Chest sp4 Tightness, High Blood Pressure, Shaking. 20:57 58-year-old male presents with a cute onset of chest pain and palpitations also sp4 anxiety. Patient states chest pains began 1-1/2 months ago. This is patient's third visit to this emergency room for the same problem. Patient reports his blood pressure was elevated at home on arrival blood pressure 176/116. Patient takes clonidine in the evening time and valsartan daily. Takes aspirin 81 mg daily - old record review -see below. CT chest - IMPRESSION: No evidence of acute central pulmonary emboli. No other acute pulmonary findings. Diffuse hepatic steatosis 04/06/[address] dissection protocol - FINDINGS: Thorax: Chest Wall: No abnormal mass Lungs: No acute abnormality. Pleura: No effusions or pneumothorax. [place]/Mediastinum: No lymphadenopathy. Aorta/Pulmonary Arteries: Unremarkable Heart: Normal size. Mild coronary artery calcifications. Abdomen/Pelvis: Liver: Hepatic steatosis Biliary: No biliary ductal dilatation. Stomach: No significant focal abnormality. Duodenum: No significant focal abnormality. Pancreas: No significant abnormality. Spleen: No significant abnormality. Adrenal: No suspicious lesions. Kidney/ureter: No hydronephrosis. No renal calculi. Retroperitoneum: No retroperitoneal adenopathy. Vascular: No aneurysm. Bowel: No significant focal abnormality. Peritoneum: Small fat containing inguinal hernias. Bladder: Grossly unremarkable. Reproductive: Mild prostatomegal IMPRESSION: No aortic aneurysm or aortic dissection identified. No acute findings within the chest, abdomen, or pelvis. A few incidental findings as noted above. Dictated By: Damien Wallace MD 04/19/23 1752. . Patient was admitted on 04/16/2023 with discharge at 04/17/2023 for noncardiac chest pain hypertensive urgency hypokalemia and diffuse hepatic steatosis. Patient at that time reported business related stress and relationship stressors. His EKG was normal. His troponins were normal. Chest x-ray was normal. CT chest angiography reveals no evidence of pulmonary emboli. Patient was evaluated by Dr. Sexton and cleared for discharge by clinical sciences professor. Medically stable for discharge patient was released on 04/17/2023. Patient was scheduled to follow-up with Dr. Kohler his PCP, clinical sciences professor Dr. Sexton and Dr. Rowe with gastroenterology. Also with psychiatry Dr. Nunes . Patient's medications include clonidine 1 tablet daily before bedtime, aspirin 81 mg daily, valsartan 160 mg daily.. Historical: - Allergies: 20:28 No Known Allergies; rv - PMHx: 20:28 Hypertensive disorder; rv - PSHx: 20:28 None; rv - Immunization history:: Adult Immunizations up to date. - Social history:: Smoking status: Patient denies any tobacco usage or history of. - Family history:: not pertinent. ROS: 21:04 Constitutional: Negative for fever, chills, and weight loss, positive palpitations, sp4 chest pain, anxiety Cardiovascular: Negative for and edema, positive chest pain and palpitations 21:04 All other systems are negative. Exam: 21:04 Constitutional: This is a well developed, well nourished patient who is awake, alert, sp4 and in no acute distress. Anxious appearing man. Head/Face: Normocephalic, atraumatic. Eyes: Pupils equal round and reactive to light, extra-ocular motions intact. Lids and lashes normal. Conjunctiva and sclera are not injected. Cornea within normal limits. Periorbital areas with no swelling, redness, or edema. ENT: Nares patent. No nasal discharge, no septal abnormalities noted. Tympanic membranes are normal and external auditory canals are clear. Oropharynx with no redness, swelling, or masses, exudates, or evidence of obstruction, uvula midline. Mucous membranes moist. Neck: Trachea midline, no thyromegaly or masses palpated, and no cervical lymphadenopathy. Supple, full range of motion without nuchal rigidity, or vertebral point tenderness. Chest/axilla: Normal chest wall appearance and motion. Nontender with no deformity. No lesions are appreciated. Cardiovascular: Regular rate and rhythm with a normal S1 and S2. No gallops, murmurs, or rubs. Normal PMI, no JVD. No pulse deficits. Respiratory: Lungs have equal breath sounds bilaterally, clear to auscultation and percussion. No rales, rhonchi or wheezes noted. No increased work of breathing, no retractions or nasal flaring. Abdomen/GI: Soft, non-tender, with normal bowel sounds. No distension or tympany. No guarding or rebound. No evidence of tenderness throughout. Back: No spinal tenderness. No costovertebral tenderness. Skin: Warm, dry with normal turgor. Normal color with no rashes, no lesions, and no evidence of cellulitis. MS/ Extremity: Pulses equal, no cyanosis. Neurovascular intact. Full, normal range of motion. Neuro: Awake and alert, GCS 15, oriented to person, place, time, and situation. Cranial nerves II-XII grossly intact. Motor strength 5/5 in all extremities. Sensory grossly intact. Psych: Awake, alert, with orientation to person, place and time. Appears to have mild to moderate anxiety 21:05 ECG was reviewed by the Attending Physician. EKG time 2031, there is normal sinus sp4 rhythm at rate of 82, no ST elevation or depression. Normal EKG overall. No active ectopy Vital Signs: 20:25 BP 176 / 116; Pulse 86; Resp 18; Temp 98.4; Pulse Ox 100% ; Weight 97.52 kg; Height 6 rv ft. 0 in. ; 04/23 00:00 BP 140 / 98; Pulse 62; Resp 16; Temp 98; Pulse Ox 100% ; rv 04/22 20:25 Body Mass Index 29.16 (97.52 kg, 182.88 cm) rv [place] Coma Score: 00:00 Eye Response: spontaneous(4). Motor Response: obeys commands(6). Verbal Response: rv oriented(5). Total: 15. MDM: 04/22 20:27 Patient medically screened. sp4 22:29 Differential diagnosis: acute myocardial infarction, acute pericarditis, anxiety, sp4 coronary artery disease chest wall pain, congestive heart failure. HEART Score: History: Moderately Suspicious (1), ECG: Normal (0), Age: > 45 and < 65 years (1), Risk Factors: 1 or 2 risk factors (1), Troponin: < or = 1 x Normal Limit (0), Total Score = 3. Data reviewed: vital signs, nurses notes, old medical records, lab test result(s), EKG, radiologic studies, plain films. ED course: There is EKG that is normal, normal work-up today, patient has recurrent chest pains with for an investigation hospital. Air Conditioning Specialist was consulted who has requested admission and order for stress test and echocardiogram in the morning. Patient is medically stable for telemetry admission. . 04/22 20:27 Order name: Basic Metabolic Panel; Complete Time: 22:14 sp4 04/22 20:27 Order name: CBC with Diff; Complete Time: 22:14 sp4 04/22 20:27 Order name: LFT's; Complete Time: 22:14 sp4 04/22 20:27 Order name: Magnesium; Complete Time: 22:14 sp4 04/22 20:27 Order name: NT PRO-BNP; Complete Time: 22:14 sp4 04/22 20:27 Order name: PT-INR; Complete Time: 22:14 sp4 04/22 20:27 Order name: Troponin HS; Complete Time: 22:14 sp4 04/22 23:04 Order name: Lipid Profile EDMI 04/22 23:04 Order name: CBC with Automated Diff EDMI 04/22 23:04 Order name: Urinalysis w/ reflexes EDMI 04/22 23:04 Order name: Comprehensive Metabolic Panel EDMI 04/22 23:04 Order name: Comprehensive Metabolic Panel EDMI 04/22 23:04 Order name: Magnesium EDMI 04/22 23:04 Order name: Magnesium EDMI 04/22 23:04 Order name: CBC with Automated Diff EDMI 04/22 23:04 Order name: Troponin High Sensitivity EDMI 04/22 23:04 Order name: Troponin High Sensitivity EDMS 04/22 23:04 Order name: Troponin High Sensitivity EDMS 04/22 23:04 Order name: Troponin High Sensitivity EDMS 04/22 23:04 Order name: Troponin High Sensitivity EDMS 04/22 23:04 Order name: Troponin High Sensitivity EDMS 04/22 23:04 Order name: Troponin High Sensitivity EDMI 04/22 20:27 Order name: XRAY Chest (1 view); Complete Time: 22:14 sp4 04/22 23:04 Order name: Echo with Doppler EDMI 04/22 20:27 Order name: EKG; Complete Time: 20:28 sp4 04/22 22:59 Order name: CONS Physician Consult [facility] 04/22 23:04 Order name: Heart Healthy EDMI 04/22 23:04 Order name: NPO EDMI 04/22 20:27 Order name: Cardiac monitoring; Complete Time: 00:54 sp4 04/22 20:27 Order name: EKG - Nurse/Tech; Complete Time: 21:28 sp4 04/22 20:27 Order name: IV Saline Lock; Complete Time: 21:28 sp4 04/22 20:27 Order name: Labs collected and sent; Complete Time: 21:28 sp4 04/22 20:27 Order name: O2 Per Protocol; Complete Time: :28 sp4 04/22 20:27 Order name: O2 Sat Monitoring; Complete Time: :28 sp4 EC:05 Rate is 82 beats/min. Rhythm is regular, Normal Sinus Rhythm. QRS Immacul[place] is Normal. [place] sp4 interval is normal. QRS interval is normal. QT interval is normal. No Q waves. T waves are Normal. No ST changes noted. Clinical impression: Normal ECG. Interpreted by me. Administered Medications: 04/23 00:54 Not Given (not appropriate at this timee): cloNIDine PO 0.3 mg PO once rv Disposition Summary: 04/22/23 22:33 Hospitalization Ordered Hospitalization Status: Observation sp4 Provider: Farhat Steiner spTim Condition: Stable sp4 Problem: new sp4 Symptoms: have improved sp4 Bed/Room Type: Standard sp4 Location: Telemetry/MedSurg (observation)(04/23/23 05:02) eb1 Room Assignment: [facility](04/23/23 05:02) eb Diagnosis - Recurrent chest pain, palpitations, sp4 Forms: - Medication Reconciliation Form sp4 - SBAR form sp4 - Leadership Thank You Letter sp4 Signatures: Dispatcher [employer] [facility] Viki Anderson RN RN eb1 Helio Williamson RN RN rv Raghu Mckinnon MD MD sp4 Corrections: (The following items were deleted from the chart) 04/22 23:23 22:33 Telemetry/MedSurg (observation) sp4 eb1 23:23 22:33 sp4 eb1 04/23 05:02 04/22 23:23 [facility] ER HOLD eb1 eb1 04/23 05:02 09 23:23 ERHOLD- eb1 eb1
--- NOTE | 2023-04-22 22:45 | P.HP ---
Certification for Inpatient Patient admitted to: Observation With expected LOS: <2 Midnights Patient will require the following post-hospital care: None Practitioner: I am a practitioner with admitting privileges, knowledge of patient current condition, hospital course, and medical plan of care. Services: Services provided to patient in accordance with Admission requirements found in Title 42 Section 412.3 of the Code of Federal Regulations Patient History Date of Service: 04/23/23 Reason for admission: Chest pain History of Present Illness: 58-year-old male with a past medical history of hypertension, fatty liver presents to the emergency room for chest pain. He reports hypertension, chest tightness and palpitations. He denies chest pain radiation. Blood pressure at home was 176/116, he reports taking his clonidine and valsartan, with 81 mg daily. He denies nausea, vomiting, shortness of breath, fever, chills, plan to admit for chest pain rule out [place], palpitations. Dr. Grande to consult for cardiology plan for echo and stress in the a.m. Laboratory evaluation mild hyponatremia at 135 blood glucose 166, transaminitis AST 98, BNP 293, troponin normal at 8.0, CBC unremarkable CT evaluation no evidence of PE, No aortic aneurysm or aortic dissection identified, troponins normal, EKG5 Rate is 82 beats/min. Rhythm is regular, Normal Sinus Rhythm. QRS Mullins Normal.interval is normal. QRS interval is normal. QT interval is normal. No Q waves. T waves are Normal. No ST changes noted. Clinical impression: Normal ECG. Allergies No Known Allergies Allergy (Verified 04/16/23 20:39) Home Medications: cloNIDine HCL [Clonidine HCl] 1 tab PO DAILY 04/16/23 Aspirin [Aspirin EC 81 MG] 81 mg PO DAILY #30 04/17/23 Valsartan 160 mg PO DAILY #30 tab 04/17/23 - Past Medical/Surgical History Diabetic: No -: Hypertension -: Fatty liver Past Surgical History: Patient denies surgical history -: None Psychosocial/ Personal History: Patient lives at home with his family, is self- employed. , social ETOH use - Social History Smoking Status: Never smoker Alcohol use: Yes CD- Drugs: No Caffeine use: No Review of Systems 10-point ROS is otherwise unremarkable Physical Examination - Physical Exam General: Alert, In no apparent distress, Oriented x3 HEENT: Atraumatic, Normocephalic, PERRLA Neck: Supple, 2+ carotid pulse no bruit, JVD not distended Respiratory: Clear to auscultation bilaterally, Normal air movement Cardiovascular: No edema, Normal pulses, Regular rate/rhythm, Normal S1 S2 Capillary refill: <2 Seconds Gastrointestinal: Normal bowel sounds, Soft and benign Musculoskeletal: No clubbing, No swelling Neurological: Normal speech, Normal strength at 5/5 x4 extr - Studies Laboratory Data (last 24 hrs) 04/22/23 04/22/23 04/22/23 21:20 21:20 21:20 WBC 8.40 Hgb 14.2 Hct 41.9 Plt Count 206 PT 10.5 INR 0.95 Sodium 135 L Potassium 4.1 BUN 13 Creatinine 1.19 Glucose 166 H Magnesium 2.2 Total Bilirubin 0.3 AST 35 ALT 98 H Alkaline Phosphatase 92 Assessment and Plan - Plan Assessment plan Chest pain rule out [place] Palpitations Hyponatremia Transaminitis Fatty liver Alcohol use DVT prophylaxis Assessment plan Chest pain rule out [place] Palpitations Cardiology consult, echo in the a.m., n.p.o. after midnight Telemetry, trend troponins, lipid panel in the a.m., BNP 293, troponin normal at 8.0, CBC unremarkable Aspirin, antilipid, as needed nitro, as needed antihypertensives Resume appropriate home meds CT evaluation no evidence of PE, No aortic aneurysm or aortic dissection identified, troponins normal, EKG Rate is 82 beats/min. Rhythm is regular, Normal Sinus Rhythm. QRS Mullins Normal.interval is normal. QRS interval is normal. QT interval is normal. No Q w aves. T waves are Normal. No ST changes noted. Clinical impression: Normal ECG. Alcohol use Transaminitis Educated on alcohol moderation, cessation transaminitis AST 98, Hyponatremia mild hyponatremia at 135 DVT prophylaxis Full code Diet n.p.o. after midnight Discharge Plan: Home Plan to discharge in: 24 Hours - Advance Directives Does patient have a Living Will: No Does patient have a Durable POA for Healthcare: No - Code Status/Comfort Care Code Status: Full Code Physician Review: Patient Assessed, Agree with Above Assessment and Plan Critical Care: No Time Spent Managing Pts Care (In Minutes): 50
[2023-04-22] MEDS ORDERED: ACETAMINOPHEN 500 MG TAB PO PRN (23:03)
[2023-04-22] MEDS ORDERED: NITROGLYCERIN 0.4 MG/TAB SL PRN (23:03)
[2023-04-22] MEDS ORDERED: ONDANSETRON 4 MG/2 ML VIAL IV PRN (23:03)
[2023-04-22] MEDS ORDERED: ALPRAZOLAM 0.25 MG TABLET PO PRN (23:03)
[2023-04-22] MEDS ORDERED: MORPHINE 4 MG/ML SYR IV PRN (23:03)
[2023-04-23] MEDS ORDERED: ZOLPIDEM TARTRATE 10 MG TABLET PO ONE (02:03)
[2023-04-23] MEDS ORDERED: ZOLPIDEM TARTRATE 5 MG TABLET ONE (02:43)
[2023-04-23 03:03] LABS: Absolute Lymphocytes (CBC) 1.9 K/uL (0.7-4.9); Hematocrit 40.2 % (39.6-49.0); Lymphocytes % 28.4 % (15.3-44.8); MCV 88.6 fL (80-100); MPV 8.3 fL (7.6-11.3); Platelets 189 thou/uL (152-406); RBC Red Blood Cell Count 4.54 M/uL (4.33-5.43)
[2023-04-23 03:26] LABS: Albumin 3.4 g/dL (3.4-5.0); Bilirubin Total 0.3 mg/dL (0.2-1.0); Magnesium 2.1 mg/dL (1.6-2.4); Potassium 3.8 mEq/L (3.5-5.1); Protein, Total 6.4 g/dL (6.4-8.2); Troponin High Sensitivity 9.7 pg/mL (<58.9)
[2023-04-23] MEDS ORDERED: POTASSIUM CL SA 10 MEQ TAB PO ONE ×2 (04:48→06:27)
[2023-04-23] MEDS: VALSARTAN 80 MG TAB PO SCH (08:39)
[2023-04-23] MEDS: ENOXAPARIN 40 MG/0.4 ML SQ SCH (08:39)
[2023-04-23] MEDS: ASPIRIN 325 MG TAB PO SCH (08:39)
[2023-04-23] MEDS ORDERED: cloNIDine HCL 0.1 MG TAB PO SCH (09:00)
[2023-04-23] MEDS ORDERED: REGADENOSON 0.4 MG/5 ML SYR IV ONE ×3 (10:50→16:58)
--- NOTE | 2023-04-23 11:50 | RAD REPORT ---
EXAM DESCRIPTION: NM - Rest Stress Cardiac Imaging - 04/23/2023 11:30 am CLINICAL HISTORY: Chest pain. COMPARISON: None. TECHNIQUE: The patient was administered 10.6 mCi of Tc 99m Sestamibi prior to resting SPECT imaging of the heart. The patient was then administered 32.4 MCi of Tc 99m Sestamibi following exercise or ph armacologic stress. Multiplanar SPECT images were reviewed. FINDINGS: Small to moderate area of diminished radiotracer activity is present within the inferior l eft ventricular myocardium on stress images. The inferior wall demonstrates more normal appearance on rest images. The left ventricular ejection fraction equals 55% IMPRESSION: Small to moderate mostly reversible perfusion defect inferior left ventricular myocardiu m may indicate stress-induced ischemia
--- NOTE | 2023-04-23 12:26 | EKG ---
Test Date: 2023-04-22 Test Time: 20:32:36 Anatomic Pathologist: RV MEASUREMENT RESULTS: Intervals: Rate: 82 CA: 168 QRSD: 94 QT: 386 QTc: 450 [place]: P: 47 CA: 168 QRS: 20 T: 10 INTERPRETIVE STATEMENTS: Normal sinus rhythm Normal ECG Compared to ECG 04/19/2023 16:50:16 Sinus bradycardia no longer present Electronically Signed On 04-23-23 12:24:40 CDT by Juarez Ramey
--- NOTE | 2023-04-23 13:37 | TREADPHA ---
DX: CHEST PAIN Date of Study: 04/23/2023 Ht: 5' 2 " Wt: 116 lb 0 oz Consulting Physician: SATISH MEDICATIONS: TYLENOL, HEPARIN, NOVOLIN-R HISTORY: 58 YEAR OLD MALE WITH COMPLAINTS OF CHEST PAIN. PHYSICIAL EXAMINATION: RESTING B.P.: 151/102 RESTING H.R.: 63 RESTING EKG: NORMAL SINUS RHYTHM, WITHIN NORMAL LIMITS PROTOCOL: PHARMACOLOGIC EXERCISE TIME: 3:30 B.P. AT PEAK STRESS: 163/97 IMPRESSION: LEXISCAN INJECTED. CARDIOLITE INJECTED (SEE NUCLEAR MEDICINE REPORT). NO COMPLAINTS OF CHEST PAIN OR SHORTNESS OF BREATH. NO VENTRICULAR TACHYCARDIA/ SUPRAVENTRICULAR TACHYCARDIA OR ARRHYTHMIAS. LAST BLOOD PRESSURE 130/90, HEART RATE 80. NO ELECTROCARDIOGRAM CHANGES WITH LEXISCAN.
[2023-04-23] MEDS ORDERED: NA CHLORIDE 0.9% 500 ML ONE (14:07)
[2023-04-23] MEDS ORDERED: FENTANYL CITR 100 MCG/2 ML ONE ×2 (14:26→17:02)
[2023-04-23] MEDS ORDERED: LIDOCAINE 1% 20 ML MDV ONE (14:26)
[2023-04-23] MEDS ORDERED: HEPA 1000U/500MLS 2,000 UNIT/1,000 ML BAG IV ONE (14:26)
[2023-04-23] MEDS ORDERED: ASPIRIN 325 MG TAB ONE (14:27)
[2023-04-23] MEDS ORDERED: MIDAZOLAM HCL 2 MG/2 ML INJ ONE ×2 (14:27→16:22)
[2023-04-23] MEDS ORDERED: CLOPIDOGREL 75 MG TABLET ONE (14:27)
[2023-04-23] MEDS ORDERED: ATROPINE SULF 1 MG/10 ML SYR IV ONE (14:27)
[2023-04-23] MEDS ORDERED: HEPARIN 10,000 UNIT/10 ML VIAL IV ONE (14:27)
[2023-04-23] MEDS ORDERED: TICAGRELOR 90 MG TABLET PO ONE (14:27)
--- NOTE | 2023-04-23 17:34 | CON ---
Date of Consultation: 04/23/2023 Reason For Consultation: Chest pain. History Of Present Illness: This is a 58-year-old male. This is his second visit to the emergency r o, hospitalized recently, and myocardial infarction was ruled out. He comes in with a chest pain, 8/10, retrosternal and with shortness of breath. So initially he came in about 2 weeks ago and myoca rdial infarction was ruled out and plan to do a stress test as an outpatient. However, he comes back with same symptoms. Stress test was done and it showed small to moderate inferior wall ischemia. H e has been NPO. He does not have active chest pain at this moment. Past Medical History: Hypertension, fatty liver. Medications: Refer to reconciliation sheet for detailed list. Allergies: NO KNOWN DRUG ALLERGIES. Family History: No premature coronary artery disease or cancer. Social History: Does not smoke or drink. Does not use any drugs. Review of Systems: All systems were reviewed and they were negative except as mentioned in the HPI. Physical Examination: Vital Signs: Reviewed. Head and Neck: Pupils are equal, reactive to light. Intact eye movements. No JVD. No cervical lym phadenopathy. Neck is supple. Thyroid is not enlarged. Lungs: Clear to auscultation bilaterally. No rhonchi, wheezing, or crackles. No accessory muscle u se. Heart: Regular rate and rhythm. No extra sounds. Abdomen: Soft, nontender. Bowel sounds positive. No organomegaly. No masses or hernia. No rigidi ty or rebound. Extremities: No edema, clubbing, or cyanosis. Intact pulses. Skin: No rash. No nodule. Neurologic: Alert, awake, and oriented x3. No acute focal deficits appreciated. Investigations: CAT exams are negative. Creatinine 0.91. Assessment And Recommendations: 1.Chest pain. Second hospitalization. Positive stress test. We will plan for a coronary angiogram and PCI as indicated. 2.Hypertension. Blood pressure is controlled. Continue current management. 3.Abnormal stress test with chest pain. Plan as above. /ANT Voice ID: [id number] Report ID: [id number]
--- NOTE | 2023-04-23 18:04 | OP ---
Surgeon: HANNAH COVARRUBIAS Procedures Performed: 1.Selective coronary angiogram. 2.Left heart catheterization. 3.FFR of mid LAD moderate stenosis, negative value of 0.85. 4.FFR of mid OM branch, moderate stenosis, negative value of 0.90. 5.IVUS of ostial left main, minimal luminal area as 13 mm with very large artery, which is insignifi cant. Indication: Chest pain with positive stress test, multiple hospitalizations. Access: Right femoral artery 6-Azerbaijani closed with 6-Azerbaijani Angio-Seal. Complications: None. Bleeding: Less than 50 mL. Anesthesia: Total sedation time was 70 minutes. Used fentanyl and Versed. Description Of Procedure: After risks, benefits, and alternatives were explained, patient agreed to procedure and signed informal consent. Patient was brought into cardiac catheterization laboratory, prepped and draped in usual sterile fashion. Then, I accessed right femoral artery using micropunctu re kit, fluoroscopy, and ultrasound guidance, placed a 6-[place]zerbaijani [place] sheath and then I took 6-[facility] JL4 catheter into the aortic root, engaged left main, took standard views and exchanged for a 6-F rench JR4 catheter, engaged the RCA, took standard views. Catheter was pushed over the wire into the LV, measured the LVEDP, and pullback did not record any gradient and then I exchanged for a 6-Azerbaijani EBU 3.5 guide, engaged the left main, gave systemic heparin to assure ACT level above 250. I took l salma Runthrough wire into the left main, then LAD, and performed IVUS after given systemic heparin to assure ACT level above 250 and minimal luminal area of the ostial left main was 13 sq mm, so insignif icant. Then, I took FFR wire into the aortic root and pressures were equalized and then FFR wire was advanced into the LAD, passing the 2 lesions of 50% and performed FFR using Lexiscan. It was negati ve at 0.85. On pullback, there was no drift and then I took the FFR wire into the OM passing the zo nosis. FFR was used using Lexiscan again and it was negative. On pullback, there was no drift. On final angiogram, there was no complication. Then, I removed the wire and the catheter and the guide and the sheath and placed 6-Azerbaijani Angio-Seal for closure with good hemostasis. Findings: 1.Left main; ostial 20% to 30%, but it is very large artery, minimal luminal area of 13 sq mm. 2.LAD; large vessel. Proximal segment is normal. Mid segment right after diagonal takeoff there is 50% stenosis and then after diagonal 2, there is 50% stenosis. FFR is -0.85. Rest of the LAD is no rmal. Diagonal branch is normal. 3.Left circumflex; it is normal and the OM branch becomes very large and has mid 50% stenosis with n egative FFR of 0.90. 4.RCA; very large and dominant and aneurysmal, proximal 40% stenosis, but still with huge lumen and some luminal irregularities, otherwise. 5.Normal LVEDP at 5 mmHg. Conclusion: 1.Moderate nonobstructive coronary artery disease. 2.Normal LVEDP. Recommendation: Medical management. /TITUSL Voice ID: [id number] Report ID: [id number]
[2023-04-23] MEDS ORDERED: HYDRALAZINE HCL 20 MG/ML VIAL IV PRN (18:46)
[2023-04-23] MEDS ORDERED: HYDRALAZINE HCL 20 MG/ML VIAL IV ONE (18:50)
[2023-04-23] MEDS ORDERED: ATORVASTATIN 40 MG TAB PO SCH (21:00)
[2023-04-23] MEDS: HYDRALAZINE HCL 10 MG TABLET PO SCH (21:01)
[2023-04-23] MEDS: METOPROLOL TARTRATE 5 MG/5 ML INJ IV STA ×2 (22:55→23:15)
[2023-04-23] MEDS ORDERED: MELATONIN 5 MG TABLET PO PRN (23:28)
[2023-04-23 23:53] VITALS: O2SAT 98
[2023-04-24 01:29] VITALS: BMI 29.4
[2023-04-24] MEDS ORDERED: METOPROLOL TAR 50 MG TAB PO SCH (06:00)
[2023-04-24 06:23] VITALS: TEMP 97.3
--- NOTE | 2023-04-24 06:40 | ECHO ---
HEIGHT: 6 ft 0 in WEIGHT: 217 lb 0 oz DATE OF STUDY: 04/23/[address]: Anahi Benjamin 2-DIMENSIONAL: YES M.MODE: YES DOPPLER: YES COLOR FLOW: YES TDS: PORTABLE: YES DEFINITY: BUBBLE STUDY: DIAGNOSIS: CHEST PAIN CARDIAC HISTORY: CATHERIZATION: SURGERY: PROSTHETIC VALVE: PACEMAKER: MEASUREMENTS (cm) DIASTOLIC (NORMALS) SYSTOLIC (NORMALS) IVSd 1.0 (0.6-1.2) LA Diam 3.8 (1.9-4.0) LVEF 67% LVIDd 5.2 (3.5-5.7) LVIDs 3.2 (2.0-3.5) %FS 37% LVPWd 1.3 (0.6-1.2) Ao Diam 3.1 (2.0-3.7) 2 DIMENSIONAL ASSESSMENT: RIGHT ATRIUM: NORMAL LEFT ATRIUM: NORMAL RIGHT VENTRICLE: NORMAL LEFT VENTRICLE: NORMAL TRICUSPID VALVE: NORMAL MITRAL VALVE: MILD MITRAL REGURGITATION PULMONIC VALVE: MILD PULMONIC INSUFFICIENCY AORTIC VALVE: NORMAL AORTIC INSUFFICIENCY PERICARDIAL EFFUSION: NONE AORTIC ROOT: NORMAL LEFT VENTRICULAR WALL MOTION: NORMAL DOPPLER/COLOR FLOW: SEE BELOW COMMENTS: 1. NORMAL LEFT VENTRICULAR EJECTION FRACTION 60-65% 2. NORMAL WALL MOTION 3. MILD MITRAL REGURGITATION, AORTIC INSUFFICIENCY, PULMONIC INSUFFICIENCY TECHNOLOGIST: ANGELICA IRVIN
[2023-04-24 08:49] VITALS: BP 119/79
[2023-04-24 08:52] LABS: Potassium 4.1 mEq/L (3.5-5.1)
[2023-04-24] MEDS: HYDRALAZINE HCL 10 MG TABLET PO SCH (09:00)
[2023-04-24] MEDS: VALSARTAN 80 MG TAB PO SCH (09:00)
[2023-04-24] MEDS: ENOXAPARIN 40 MG/0.4 ML SQ SCH (09:19)
[2023-04-24] MEDS: ASPIRIN 325 MG TAB PO SCH (09:19)
[2023-04-24] MEDS ORDERED: HYDRALAZINE HCL 10 MG TABLET PO SCH (14:00)
== END 2023-04-24 12:54 | disposition home or self-care (01) ==
LOC: ER 20:06 → ERHOLD 22:56 → 4TH 04-23 07:29
PROVIDERS: ADMIT Hospitalist; ATTEND Hospitalist
DX: I25.10 Atherosclerotic heart disease of native coronary artery without angina pectoris (principal); I10 Essential (primary) hypertension; E78.5 Hyperlipidemia, unspecified; R00.2 Palpitations; K76.0 Fatty (change of) liver, not elsewhere classified; E87.1 Hypo-osmolality and hyponatremia; F10.90 Alcohol use, unspecified, uncomplicated; R74.01 Elevation of levels of liver transaminase levels; Z79.82 Long term (current) use of aspirin; Z79.899 Other long term (current) drug therapy
CPT/HCPCS: 36415; 71045; 76937; 78452; 80048; 80053; 80061; 80076; 83735; 83880; 84484; 85025; 85347; 85610; 92978; 93005; 93017; 93306; 93458; 93571; 93572; 99285; A9500; C1760; C1769; C1893; G0269; G0378; J0360; J0461; J1650; J2001; J2250; J2785; J3010; J7040; Q9967

== ENCOUNTER 2023-05-04 21:36 | Emergency (ER) | payer BC ==
--- OUTSIDE RECORDS SUMMARY | 2023-05-04 21:40 | XMS REPORT | Continuity of Care Document ---
:1965 Author Organization [facility] t Address [address] [place] [address] Care Team Providers Name Role Phone DEBRA WARREN Primary Care Physician Unavailable SHAHAB JARRETT Attending Clinician Unavailable 2, [facility] Attending Clinician Unavailable Shahab Jarrett MD Attending Clinician DEBRA WARREN Attending Clinician Unavailable Debra Warren MD Attending Clinician Doctor Unassigned, [place] Attending Clinician Unavailable JAIMEE UERNA Attending Clinician Unavailable Payers Payer Name Policy Type Policy Number Effective Date Expiration Date S fabrizio [facility] [id number] 2017 00:00:00 [facility] [id number] 2016 [facility] 00:00:00 Problems Condition Condition Condition Status Onset Resolution Last Treating Co mments Source Name Details Category Date Date Treatment Clinician Date Primary Primary Disease Active Univers hypertensi hypertensi 9-11 it y of on on 00:00: [address] Branch Elevated Elevated Disease Active Unive rs BP BP 5-23 ity of 00:00: [place] [address] Medical Branch Allergic Allergic Disease Active Unive rs rhinitis, rhinitis, 01-06 ity [place] allergic 00 [place] dical rhinitis rhinitis Branch trigger, trigger, unspecifie unspecifie d rhinitis d rhinitis seasonalit seasonalit y y Maxillary Maxillary Disease Active Uni vers sinusitis, sinusitis, -23 it y of [place]specif[place] Medical chronicity chronicity Br anch Allergies, Adverse Reactions, Alerts Allergy Allergy Status Severity Reaction(s) Onset Inactive Treating Comm ents Source Name Type Date Date Clinician NO KNOWN Drug Active Univers ALLERGIE Class ity of S [facility] Social History Social Habit Start Date Stop Date Quantity Comments Source History of tobacco Snuff User Univer sity of use [facility] Gender identity Universit y of [facility] Sexual orientation Univer sity of [facility] Tobacco use and 2023-04-27 2023-04-27 User of Universit y of exposure 00:00:00 00:00:00 smokeless [facility] tobacco [place] Alcohol intake 2023-04-27 2023-04-27 Current drinker Unive rsity of 00:00:00 00:00:00 of alcohol [facility] (finding) [place] History of Social 2023-04-27 2023-04-27 Univers ity of function 00:00:00 00:00:00 [facility] Tobacco Comment 2023-04-27 2023-04-27 snuff Universit y of 00:00:00 00:00:00 occasionally; [facility] al [place] Alcohol Comment 2017-01-06 2017-01-06 variable: 1-6 Univer sity of 00:00:00 00:00:00 mixed weekly [facility] [place] Sex Assigned At [birth year] Universit y of 00:00:00 00:00:00 [facility] Smoking Status Start Date Stop Date Source Never smoked tobacco [facility] Medications Ordered Filled Start Stop Current Ordering Indication Dosage Frequency Signature Comments Components Source Medication Medication Date Date Medication? Clinician (SIG) Name Name metoprolol Yes [id number] 100mg Take 1 Univers succinate 9-11 tablet by ity o f XL 100 mg 00:00: mouth in [facility] 24 hr 00 the Medical tablet morning. Branch lisinopriL- Yes [id number] 1{tbl} Take 1 Univers hydrochloro 9-11 tablet by ity of thiazide 00:00: mouth in [place] 20-12.5 mg 00 the Medical per tablet morning. Branc h potassium Yes [id number] 10meq Take 1 U nivers chloride 10 9-11 tablet by ity of mEq CR 00:00: mouth in [place] tablet 00 the Medical morning. Branch metoprolol 2023-0 Yes [id number] 100mg Take 1 Univers succinate 9-11 tablet by ity o f XL 100 mg 00[place]00: [place] 00 the Medical tablet morning. Branch lisinopriL- 2022-0 Yes [id number] 1{tbl} Take 1 Univers hydrochloro 9-11 tablet by ity of thiazide 00:00: mouth in [place] 20-12.5 mg 00 the Medical per tablet morning. Branc h potassium 2022-0 Yes [id number] 10meq Take 1 U nivers chloride 10 9-11 tablet by ity of mEq CR 00:00: mouth in [place] tablet 00 the Medical morning. Branch metoprolol 2022-0 Yes [id number] 100mg Take 1 Univers succinate 9-11 tablet by ity o f XL 100 mg 00:00: [place] 24 [place] 00 the Medical tablet morning. Branch lisinopriL- 2022-0 Yes [id number] 1{tbl} Take 1 Univers hydrochloro 9-11 tablet by ity of thiazide 00:00: mouth in [place] 20-12.5 mg 00 the Medical per tablet morning. Branc h potassium 2022-0 Yes [id number] 10meq Take 1 U nivers chloride 10 9-11 tablet by ity of mEq CR 00:00: mouth in [place] tablet 00 the Medical morning. Branch metoprolol 2022-0 Yes [id number] 100mg Take 1 Univers succinate 9-11 tablet by ity o f XL 100 mg 00:00: mouth [place] 24 hr 00 the Medical tablet morning. Branch lisinopriL- 2022-0 Yes [id number] 1{tbl} Take 1 Univers hydrochloro 9-11 tablet by ity of thiazide 00:00: mouth in [place] 20-12.5 mg 00 the Medical per tablet morning. Branc h potassium 2022-0 Yes [id number] 10meq Take 1 U nivers chloride 10 9-11 tablet by ity of mEq CR 00:00: mouth in [place] tablet 00 the Medical morning. Branch metoprolol 3-0 Yes [id number] 100mg Take 1 Univers succinate 9-11 tablet by ity o f XL 100 mg 00:00: [place] 24 [place] 00 the Medical tablet morning. Branch lisinopriL- 2022-0 Yes [id number] 1{tbl} Take 1 Univers hydrochloro 9-11 tablet by ity of thiazide 00:00: mouth in [place] 20-12.5 mg 00 the Medical per tablet morning. [facility] potassium Yes [id number] 10meq Take 1 U nivers chloride 10 9-11 tablet by ity of mEq CR 00:00: mouth in [place] tablet 00 the Medical morning. Branch metoprolol Yes [id number] 100mg Take 1 Univers succinate 9-11 tablet by ity o f XL 100 mg 00:00: [place] 24 [place] 00 the Medical tablet morning. Branch lisinopriL- Yes [id number] 1{tbl} Take 1 Univers hydrochloro 9-11 tablet by ity of thiazide 00:00: mouth in [place] 20-12.5 mg 00 the Medical per tablet morning. [facility] potassium Yes [id number] 10meq Take 1 U nivers chloride 10 9-11 tablet by ity of mEq CR 00:00: mouth in [place] tablet 00 the Medical morning. Branch amlodipine- Yes 1{capsu Take 1 U nivers benazepril 3-25 le} capsule by ity of 5-20 mg per 00:00: mouth [place] capsule 00 daily. Medical MUST BE Branch SEEN FOR FURTHER REFILLS amlodipine- Yes 1{capsu Take 1 U nivers benazepril 3-25 le} capsule by ity of 5-20 mg per 00:00: mouth [place] capsule 00 daily. Medical MUST BE Branch SEEN FOR FURTHER REFILLS amlodipine- 2022- No 1{capsu Take 1 Univers benazepril 3-25 09-11 le} capsule by it y of 5-20 mg per 00:00: 00:00 [place] capsule 00 :00 daily. Medical MUST BE Branch SEEN FOR FURTHER REFILLS amlodipine- 2022- No 1{capsu Take 1 Univers benazepril 3-25 09-11 le} capsule by it y of 5-20 mg per 00:00: 00:00 [place] capsule 00 :00 daily. Medical MUST BE Branch SEEN FOR FURTHER REFILLS amlodipine- Yes [id number] 1{capsu Take 1 Univers benazepril 6-19 le} capsule by ity of 5-10 mg per 00:00: mouth [place] capsule 00 daily. Medical Follow up Branch required for additional RF amlodipine- Yes [id number] 1{capsu Take 1 Univers benazepril 6-19 le} capsule by ity of 5-10 mg per 00:00: mouth [place] capsule 00 daily. Medical Follow up Branch required for additional RF amlodipine- 2022- No [id number] 1{capsu Take 1 Univers benazepril 6-19 09-11 le} capsule by it y of 5-10 mg per 00:00: 00:00 [place] capsule 00 :00 daily. Medical Follow up Branch required for additional RF amlodipine- 2022- No [id number] 1{capsu Take 1 Univers benazepril 6-19 -11 le} capsule by it y of 5-10 mg per 00:00: 00:00 [place] capsule 00 :00 daily. Medical Follow up Branch required for additional RF fluticasone Yes [id number] 2{spray Use 2 Univers 50 5-23 } Sprays in ity of mcg/actuati 00:00: each [place] on nasal 00 nostril Medical spray daily. Branch azelastine Yes [id number] 1{spray Use 1 Univers 137 mcg 5-23 } [place] in ity of (0.1 %) 00:00: each [place] nasal spray 00 nostril 2 Med ical (two) Branch times daily. Use in each nostril as directed fluticasone Yes [id number] 2{spray Use 2 Univers 50 5-23 } Sprays in ity of mcg/actuati 00:00: each [place] on nasal 00 nostril Medical spray daily. Branch azelastine Yes [id number] 1{spray Use 1 Univers 137 mcg 5-23 } [place] in ity of (0.1 %) 00:00: each [place] nasal spray 00 nostril 2 Med ical (two) Branch times daily. Use in each nostril as directed fluticasone 2016-2022- No [id number] 2{spray Use 2 Univers 50 5-23 09-11 } Sprays in ity of mcg/actuati 00:00: 00:00 each [place] on nasal 00 :00 nostril Medical spray daily. Branch azelastine 2022- No [id number] 1{spray Use 1 Univers 137 mcg 01-06 } [place] in ity of (0.1 %) 00:00: 00:00 each [place] nasal spray 00 :00 nostril 2 Med ical (two) Branch times daily. Use in each nostril as directed fluticasone 2022- No [id number] 2{spray Use 2 Univers 50 01-06 } Sprays in ity of mcg/actuati 00:00: 00:00 each [place] on nasal 00 :00 nostril Medical spray daily. [place] azelastine 2022- No [id number] 1{spray Use 1 Univers 137 mcg 01-06 } [place] in ity of (0.1 %) 00:00: 00:00 each [place] nasal spray 00 :00 nostril 2 Med ical (two) Branch times daily. Use in each nostril as directed Vital Signs Vital Name Observation Time Observation Value Comments Source Respiratory rate 2023-04-28 19:59:00 19 /min [facility] 2023-04-28 19:59:00 182.9 cm [facility] Body weight 2023-04-28 19:59:00 101.651 kg [facility] BMI 2023-04-28 19:59:00 30.39 kg/m2 [facility] Oxygen saturation in 2023-04-28 19:59:00 97 /min [facility] Arterial blood by [facility] Pulse oximetry Branch Systolic blood 2023-04-28 19:59:00 137 mm[Hg] Univer sity of [facility] Diastolic blood 2023-04-28 19:59:00 88 mm[Hg] Unive rsity of [facility] Heart rate 2023-04-28 19:59:00 76 /min [facility] Systolic blood 2023-04-27 13:56:00 127 mm[Hg] Univer sity of [facility] Diastolic blood 2023-04-27 13:56:00 87 mm[Hg] Unive rsity of pressure [facility] Heart rate 2023-04-27 13:56:00 65 /min [facility] Respiratory rate 2023-04-27 13:56:00 18 /min [facility] Body height 2023-04-27 13:56:00 182.9 cm [facility] Body weight 2023-04-27 13:56:00 99.791 kg [facility] BMI 2023-04-27 13:56:00 29.84 kg/m2 [facility] Oxygen saturation in 2023-04-27 13:56:00 99 /min [facility] Arterial blood by [facility] Pulse oximetry Branch Procedures Procedure Date / Time Performed Performing Clinician Sour e ASSIGNMENT OF BENEFITS 2023-04-27 13:45:25 Doctor Unassigned, No [facility] Encounters Start End Encounter Admission Attending Care Care Encounter Source Date/Time Date/Time Type Type Clinicians Facility Department ID 2023-04-28 2023-04-28 [facility] [id number] Univers 16:00:00 16:00:00 SHAHAB miguel [facility] 2023-04-28 2023-04-28 Spreading Machine Operator 2, Adc Lab [facility] [id number] Univers 15:45:00 16:00:00 Visit Shahab Jarrett [id number] ity [facility] [id number] [id number] [facility] [address] [facility] 2023-04-28 2023-04-28 [facility] [id number] Univers 15:00:00 15:42:09 SHAHAB miguel [facility] 2023-04-28 2023-04-28 Office [facility] [id number] Univers 15:00:00 15:42:09 Visit Shahab GODDARD [id number] ity [facility] [id number] [id number] Mo dical NAL 059 [facility] 2023-04-27 2023-04-27 Outpatient Violette WARREN [facility] [id number] Univers 09:00:00 09:38:57 [facility] 2023-04-27 2023-04-27 Office [facility] [id number] Univers 09:00:00 09:30:00 Visit [facility] [id number] it y of [place] [id number] Ghanshyam as DALI?BLEA [id number] [address] OFFICE [facility] 2023-04-27 2023-04-27 Orders Doctor AURELIA [id number] Univers 00:00:00 00:00:00 Only Unassigned, IRASEMA [id number] ity of [place] [facility] [id number] Ghanshyam as [id number] [address] 2023-04-23 2023-04-23 [facility] [id number] Univers 09:00:00 09:00:00 [facility] 2023-04-21 2023-04-21 Telephone [facility] [id number] Univers 00:00:00 00:00:00 [facility] [id number] it y of [facility] [id number] Ghanshyam as DALI?BLEA [id number] [address] 2021-04-21 2021-04-[address] [facility] [id number] Univers 16:00:00 16:00:00 [id number] [facility] 2021-04-21 2021-04-21 Outpatient [facility] [id number] Univers 16:00:00 16:00:00 JAIMEE [facility] Results This patient has no known results. Notes Date/Time Note Provider Source 2023-04-28 Formatting of this note is different from the or iginal. [facility] 15:45:00-00:00 Images from the original note were not included. Venipuncture collection perf ormed by clean technique on the right anticubitus. Total of 1 attempts were made. Slight pressure and a bandage/dressing were applied to the site(s). The patient experienced no complications. The follow ing specimens were processed according to instructions and sent to [facility] laboratories per lab order on 04/28/2023 : LT BLUE SST 1 RED LAV 1 PPT DK GREEN (LiHep) DK GREEN (SodH) MICHAEL DK BLUE (K2) DK BLUE (S) ACD Blood Culture NIPT/NTD Electronically signed by Caryn Green at 0 04/28/2023 3:49 PM CDT 2023-04-21 Formatting of this note might be differe nt from the original. Bessy Coello [employer] [facility] 09:46:52-00:00 Notified Karen that we do no t have an earlier appointment. Patient is scheduled 04/23/23 at 9 am. She verbalized understanding. 2023-04-21 Formatting of this note might be differe nt from the original. Juana Rendon [facility] 08:21:08-00:00 Karen is calling in regards to Carey. He was in the hospital over the weekend for high blood pressure issues. A hospital follow up is scheduled for 04/23/23 but wants to know if he can be seen sooner than that? She would like to speak to a nurse. Please call and advise thanks. Electronically signed by Juana Rendon at 8:24 AM CDT
[2023-05-04 22:21] LABS: Absolute Lymphocytes (CBC) 1.7 K/uL (0.7-4.9); Hematocrit 38.8 % (39.6-49.0); Lymphocytes % 28.8 % (15.3-44.8); MCV 90.7 fL (80-100); MPV 8.1 fL (7.6-11.3); Platelets 222 thou/uL (152-406); RBC Red Blood Cell Count 4.27 M/uL (4.33-5.43)
[2023-05-04 22:34] LABS: Potassium 3.3 mEq/L (3.5-5.1)
[2023-05-04 22:35] LABS: Troponin High Sensitivity 6.6 pg/mL (<58.9)
--- NOTE | 2023-05-04 22:37 | RAD REPORT ---
EXAM DESCRIPTION: RADChest Single View05/04/2023 10:26 pm CLINICAL HISTORY: CHEST PAIN COMPARISON: Chest Single View dated 04/22/2023; Chest Single View dated 04/19/2023; Chest Single View da tamiko 04/16/2023; ABDOMEN ACUTE SERIES dated 11/16/2009 TECHNIQUE: Portable AP view of the chest. FINDINGS: Decreased inspiratory effort limits evaluation. Left basilar subtle opacity may reflect at electasis, less likely early airspace disease. No pneumothorax or effusion. The cardiomediastinal co ntours are unremarkable. IMPRESSION: Left basilar subtle airspace opacity as above.
--- NOTE | 2023-05-04 23:19 | EDPHYS ---
Physician Documentation [facility] Name: Davion Andrade Age: 58 yrs Sex: Male : 1965 Arrival Date: 05/04/2023 Time: 21:36 Bed 6 Private MD: ED Physician Raghu Mckinnon HPI: 05/05 00:05 This 58 yrs old Male presents to ER via Ambulatory with complaints of High Blood kb Pressure, Chest Tightness. 00:05 The patient has elevated blood pressure and discovered this at home, with a home kb device. Onset: The symptoms/episode began/occurred 6 month(s) ago. Associated signs and symptoms: Pertinent positives: chest pain, Pertinent negatives: dizziness, dyspnea, headache, lightheadedness, nausea, visual changes, vomiting, weakness. Severity of symptoms: At its worst the blood pressure was 200 mm Hg, in the emergency department the blood pressure is improved. The patient has experienced similar episodes in the past. The patient has been recently seen by a physician:. Historical: - Allergies: 05/04 21:53 No Known Allergies; me1 - Home Meds: 21:53 Lisinopril Oral [Active]; Metoprolol Tartrate Oral [Active]; me1 - PMHx: 21:52 Hypertensive disorder; me1 - Immunization history:: Client reports having NOT received the Covid vaccine. - Social history:: Smoking status: Patient reports use of chewing tobacco. Patient denies any tobacco usage or history of. ROS: 05/05 00:05 Constitutional: Negative for fever, chills, and weight loss, kb Cardiovascular: Positive for chest pain, All other systems are negative, Exam: 00:05 Constitutional: This is a well developed, well nourished patient who is awake, alert, kb and in no acute distress. Head/Face: Normocephalic, atraumatic. ENT: Moist Mucous membranes Cardiovascular: Regular rate Respiratory: Respirations even and unlabored. No increased work of breathing. Talking in full sentences Abdomen/GI: Soft, non-tender. No distention Skin: Warm, dry with normal turgor. Normal color. MS/ Extremity: Pulses equal, no cyanosis. Neurovascular intact. Full, normal range of motion. Neuro: Awake and alert, GCS 15, oriented to person, place, time, and situation. Moves all extremities. Normal gait. 00:57 ECG was reviewed by the Attending Physician. kb Vital Signs: 05/04 21:57 BP 163 / 104; Pulse 64; Resp 16 S; Temp 98.8(TE); Pulse Ox 100% on R/A; Weight 99.79 kg me1 (R); Height 6 ft. 0 in. (R); Pain 0/10; 22:25 BP 139 / 91; kl 23:34 BP 159 / 95; Pulse 68; Resp 18; Temp 98.2; Pulse Ox 99% ; Pain 0/10; kl 21:57 Body Mass Index 29.84 (99.79 kg, 182.88 cm) me1 21:57 Pain Scale: Adult me1 23:34 Pain Scale: Adult kl MDM: 21:41 Patient medically screened. kb 23:13 Data reviewed: vital signs, nurses notes. External Records Reviewed: Inpatient record: Heart Cath done on 04/23/23 shows: 1. Moderate nonobstructive coronary artery disease. 2. Normal LVEDP.. 05/05 00:03 Differential diagnosis: hypertensive crisis, Malignant HTN, NC, abnormal EKG. kb Consideration of Admission/Observation Escalation of care including admission/observation considered. admission considered, but symptoms have improved since onset, have been intermittent for 6 months and pt had stress test and heart cath on 04/23/23. Pt has appt with cardiology at 1015 tomorrow morning. Counseling: I had a detailed discussion with the patient and/or guardian regarding the historical points, exam findings, and any diagnostic results supporting the discharge/admit diagnosis, lab results, radiology results, the need for outpatient follow up, a family practitioner, to return to the emergency department if symptoms worsen or persist or if there are any questions or concerns that arise at home. 05/04 21:57 Order name: Basic Metabolic Panel; Complete Time: 22:42 kb 05/04 21:57 Order name: CBC with Diff; Complete Time: 22:42 kb 05/04 21:57 Order name: Magnesium; Complete Time: 22:42 kb 05/04 21:57 Order name: NT PRO-BNP; Complete Time: 22:42 kb 05/04 21:57 Order name: Troponin HS; Complete Time: 22:42 kb 05/04 21:57 Order name: XRAY Chest (1 view); Complete Time: 22:42 kb 05/04 21:57 Order name: EKG; Complete Time: :57 kb 05/04 21:57 Order name: Cardiac monitoring; Complete Time: 22:47 kb 05/04 21:57 Order name: EKG - Nurse/Tech; Complete Time: 22:14 kb 05/04 21:57 Order name: IV Saline Lock; Complete Time: 22:14 kb 05/04 21:57 Order name: Labs collected and sent; Complete Time: 22:14 kb 05/04 21:57 Order name: O2 Per Protocol; Complete Time: 22:47 kb 05/04 21:57 Order name: O2 Sat Monitoring; Complete Time: :47 kb EC:57 Rate is 67 beats/min. Rhythm is regular. QRS [place] is Normal. PA interval is normal at kb 166 msec. QRS interval is normal at 106 msec. QT interval is normal at 431 msec. Administered Medications: No medications were administered Disposition: 08:43 Co-signature as Attending Physician, Raghu Mckinnon MD I agree with the assessment sp4 and plan of care. I reviewed the patient's care provided by the Advanced Practice Provider and agree with the diagnosis and treatment plan. Disposition Summary: 05/04/23 23:18 Discharge Ordered Notes: Location: Home kb Condition: Stable kb Diagnosis - Chest pain, unspecified kb - Essential (primary) hypertension kb Followup: kb - With: Emergency Department - When: As needed - Reason: Worsening of condition Followup: kb - With: Private Physician - When: 2 - 3 days - Reason: Recheck today's complaints, Continuance of care, Re-evaluation by your physician Discharge Instructions: - Discharge Summary Sheet kb - Nonspecific Chest Pain, Adult, [id number] kb - Hypertension, Adult, [id number] kb Forms: - Medication Reconciliation Form kb - Thank You Letter kb - Antibiotic Education kb - Prescription Opioid Use kb - Patient Portal Instructions kb - Leadership Thank You Letter kb Signatures: Dispatcher [employer] Estela Childress FNP-C FNP-Raghu Crocker MD MD sp4 Jael Nunez, RN RN me1
--- NOTE | 2023-05-04 23:19 | ER ---
Nurse's Notes [facility] Name: Davion Andrade Age: 58 yrs Sex: Male : 1965 Arrival Date: 05/04/2023 Time: 21:36 Bed 6 Private MD: Diagnosis: Chest pain, unspecified;Essential (primary) hypertension Presentation: 05/04 21:51 Chief complaint: Patient states: "I've been having high blood pressure for several days me1 now and I haven't been able to get it down". Coronavirus screen: At this time, the client does not indicate any symptoms associated with coronavirus-19. Ebola Screen: No symptoms or risks identified at this time. Initial Sepsis Screen: Does the patient meet any 2 criteria? No. Patient's initial sepsis screen is negative. Does the patient have a suspected source of infection? No. Patient's initial sepsis screen is negative. Risk Assessment: Do you want to hurt yourself or someone else? Patient reports no desire to harm self or others. Onset of symptoms was May 01, 2023. 21:51 Acuity: BRAYDEN 3 me1 21:51 Method Of Arrival: Ambulatory or1 Triage Assessment: 22:14 General: Appears in no apparent distress. Behavior is calm, cooperative. Pain: Denies as6 pain. Cardiovascular: Reports "chest tightness". Historical: - Allergies: 21:53 No Known Allergies; me1 - Home Meds: 21:53 Lisinopril Oral [Active]; Metoprolol Tartrate Oral [Active]; me1 - PMHx: 21:52 Hypertensive disorder; me1 - Immunization history:: Client reports having NOT received the Covid vaccine. - Social history:: Smoking status: Patient reports use of chewing tobacco. Patient denies any tobacco usage or history of. Screenin:26 [facility] ED Fall Risk Assessment (Adult) History of falling in the last 3 months, kl including since admission No falls in past 3 months (0 pts) Confusion or Disorientation No (0 pts) Intoxicated or Sedated No (0 pts) Impaired Gait No (0 pts) Mobility Assist Device Used No (0 pt) Altered Elimination No (0 pt) Score/Fall Risk Level 0 - 2 = Low Risk Oriented to surroundings, Maintained a safe environment. Abuse screen: Denies threats or abuse. Nutritional screening: No deficits noted. Tuberculosis screening: No symptoms or risk factors identified. Assessment: 22:26 General: Appears in no apparent distress. comfortable, Behavior is calm, cooperative. kl Pain: Denies pain. Neuro: No deficits noted. Cardiovascular: No deficits noted. Respiratory: No deficits noted. GI: No deficits noted. No signs and/or symptoms were reported involving the gastrointestinal system. : No deficits noted. No signs and/or symptoms were reported regarding the genitourinary system. Vital Signs: 21:57 BP 163 / 104; Pulse 64; Resp 16 S; Temp 98.8(TE); Pulse Ox 100% on R/A; Weight 99.79 kg me1 (R); Height 6 ft. 0 in. (R); Pain 0/10; 22:25 BP 139 / 91; kl 23:34 BP 159 / 95; Pulse 68; Resp 18; Temp 98.2; Pulse Ox 99% ; Pain 0/10; kl 21:57 Body Mass Index 29.84 (99.79 kg, 182.88 cm) me1 21:57 Pain Scale: Adult me1 23:34 Pain Scale: Adult ED Course: 21:39 Patient arrived in ED. cc5 21:40 [facility]. kb 21:41 Raghu Mckinnon MD is Attending Physician. kb 21:51 Arm band placed on. me1 21:52 Triage completed. me1 22:14 Basic Metabolic Panel Sent. as6 22:14 CBC with Diff Sent. as6 22:14 Magnesium Sent. as6 22:14 NT PRO-BNP Sent. as6 22:14 Troponin HS Sent. as6 22:15 Inserted saline lock: 20 gauge in right forearm, using aseptic technique. Blood as6 collected. 22:23 Shelly Rodarte, RN is Primary Nurse. jw7 22:27 XRAY Chest (1 view) In Process Unspecified. EDMS 23:35 No provider procedures requiring assistance completed. IV discontinued, intact, kl bleeding controlled, No redness/swelling at site. Pressure dressing applied. 23:36 Patient has correct armband on for positive identification. Bed in low position. Call kl light in reach. Client placed on continuous cardiac and pulse oximetry monitoring. NIBP monitoring applied. Administered Medications: No medications were administered Medication: 23:35 VIS not applicable for this client. kl Outcome: 23:18 Discharge ordered by . tristan 23:35 Discharged to home ambulatory, 23:35 Condition: stable 23:35 Discharge instructions given to patient, Instructed on discharge instructions, follow up and referral plans. Demonstrated understanding of instructions, follow-up care, 23:36 Patient left the ED. kl Signatures: Dispatcher [employer] EDEstela Lugo, LANGUAGE TUTOR-C LANGUAGE TUTOR-Mikala Redding, RN RN Garry Spicer RN RN as6 Shelly Rodarte RN RN [email or web address] She Sow 5 Jael Nunez RN RN me1
[2023-05-05 01:11] VITALS: BP 159/95; TEMP 98.2; O2SAT 99
--- NOTE | 2023-05-06 14:38 | EKG ---
Test Date: 2023-05-04 Test Time: 22:12:38 Clinical Quality Rn: MEASUREMENT RESULTS: Intervals: Rate: 67 HI: 166 QRSD: 106 QT: 408 QTc: 431 [place]: P: 37 HI: 166 QRS: 10 T: 31 INTERPRETIVE STATEMENTS: Normal sinus rhythm Normal ECG Compared to ECG 04/22/2023 20:32:36 No significant changes Electronically Signed On 05-06-23 14:33:17 CDT by Juarez Ramey
== END 2023-05-04 23:36 | disposition home or self-care (01) ==
LOC: ER 21:36
DX: R07.89 Other chest pain (principal); F17.220 Nicotine dependence, chewing tobacco, uncomplicated
CPT/HCPCS: 36415; 71045; 80048; 83735; 83880; 84484; 85025; 93005; 99284

== ENCOUNTER 2023-05-19 16:31 | Observation (INO) | payer BC ==
--- OUTSIDE RECORDS SUMMARY | 2023-05-19 16:36 | XMS REPORT | Continuity of Care Document ---
:1965 Author Organization [facility] t Address [address] [facility] [address] [place] [address] Care Team Providers Name Role Phone DEBRA WARREN Primary Care Physician Unavailable SHAHAB BHATTI Attending Clinician Unavailable Debra Warren MD Attending Clinician DEBRA WARREN Attending Clinician Unavailable Shahab Bhatti MD Attending Clinician Randal SOTO, Yi Valladares Attending Clinician Angélica SOTO, Carey Conley Attending Clinician Carey Coello MD Attending Clinician [phone] Doctor Unassigned, [place] Attending Clinician Unavailable 2, [facility] Attending Clinician Unavailable JAIMEE URENA Attending Clinician Unavailable CAREY COELLO Admitting Clinician Unavailable MD CAREY LINDSAY Admitting Clinician Unavailable Payers Payer Name Policy Type Policy Number Effective Date Expiration Date [id number] 2017 00:00:00 [facility] [id number] 2016 SELECT 00:00:00 Problems Condition Condition Condition Status Onset Resolution Last Treating Co mments Source Name Details Category Date Date Treatment Clinician Date Acute Acute Disease Active Methodi chest pain chest pain 05-05 00:00: Hospita 00 l Primary Primary Disease Active Univers hypertensi hypertensi 9-11 it y of on on 00:00: [place] 00 Medical Branch Elevated Elevated Disease Active Unive rs BP BP 01-06 ity of 00:00: [place] 00 Medical Branch Allergic Allergic Disease Active Unive [...] Active Univers ALLERGIE Class ity of S [facility] Social History Social Habit Start Date Stop Date Quantity Comments Source History of tobacco Snuff User Univer sity of use [facility] Gender identity Universit y of [place] [facility] [place] Sexual orientation [facility] Alcohol intake 2023-05-14 2023-05-14 Current drinker Unive rsity of 00:00:00 00:00:00 of alcohol [facility] (finding) [place] History of Social 2023-05-05 2023-05-[address] function 00:00:00 00:00:00 Hospital Tobacco use and 2023-04-27 2023-04-27 User of Universit y of exposure 00:00:00 00:00:00 smokeless [facility] tobacco Branch Tobacco Comment 2023-04-27 2023-04-27 snuff Universit y of 00:00:00 00:00:00 occasionally; [facility] [place] Alcohol Comment 2017-01-06 2017-01-06 variable: 1-6 Univer sity of 00:00:00 00:00:00 mixed weekly [place] [facility] [place] Sex Ass[birth year] At [birth year] [facility] 00:00:00 00:00:00 Hospital Smoking Status Start Date Stop Date Source Tobacco [facility] Medications Ordered Filled Start Stop Current Ordering Indication Dosage Frequency Signature Comments Components Source Medication Medication Date Date Medication? Clinician (SIG) Name Name PARoxetine Yes [id number] 20mg Take 1 U nivers (PAXIL) 20 9-28 tablet by ity of mg tablet 00:00: mouth in [place] [address] the Medical morning. Branch PARoxetine 2022-0 Yes [id number] 20mg Take 1 U nivers (PAXIL) 20 9-28 tablet by ity of mg tablet 00:00: mouth in [facility] 00 the Medical morning. Branch amLODIPine 2022-0 Yes [id number] 10mg Take 1 U nivers 10 mg 9-26 tablet by ity of tablet 00:00: mouth in [place] the Medical morning. Branch amLODIPine 2022-0 Yes [id number] 10mg Take 1 U nivers 10 mg 9-26 tablet by ity of tablet 00:00: mouth in [place] the Medical morning. Branch amLODIPine 2022-0 Yes [id number] 10mg Take 1 U nivers 10 mg 9-26 tablet by ity of tablet 00:00: mouth in [place] [address] the Medical morning. Branch amLODIPine 2022-0 Yes [id number] 10mg Take 1 U nivers 10 mg 9-26 tablet by ity of tablet 00:00: mouth in [place] [address] the Medical morning. Branch potassium 2022-0 Yes 10meq QD Take 1 Metho di chloride 05-07 tablet (10 st (KLOR-CON) 13:50: mEq total) H ospita 10 MEQ CR 00 by mouth l tablet daily. metoprolol 0 Yes 100mg QD Take 1 Meth han succinate - tablet st XL 13:50: (100 mg Hospita (TOPROL-XL) 00 total) by l 100 mg 24 mouth hr tablet daily. aspirin 2022-0 Yes 81mg QD Take 1 Methodi (ECOTRIN) 05-07 tablet (81 st 81 MG 13:50: mg total) Hospita enteric 00 by mouth l coated daily. tablet lisinopriL- 0 2022- No 1{tbl} QD Take 1 M ethodi hydrochloro - 09-[address] thiazide 13:50: 00:00 mouth Hospita (PRINZIDE) 00 :00 daily. l 20-12.5 mg per tablet amLODIPine 2022-0 2022- Yes 5mg QD Take 1 Meth han (NORVASC) 5 05-07 10-22 tablet (5 st mg tablet 00:00: 04:59 mg total) Ho spita 00 :00 by mouth l daily for 30 days. lisinopriL 2022-0 3- Yes 20mg QD Take 1 Meth han (PRINIVIL) 9-21 10-22 tablet (20 st 20 mg 00:00: 04:59 mg total) Hospit a tablet 00 :00 by mouth l daily for 30 days. metoprolol 2022-0 Yes [id number] 100mg Take 1 Univers succinate 9-11 tablet by ity o f XL 100 mg 00:00: [place] 24 [place] 00 the Medical tablet morning. Branch lisinopriL- 2022-0 Yes [id number] 1{tbl} Take 1 Univers hydrochloro 9-11 tablet by ity of thiazide 00:00: mouth in [place] 20-12.5 mg 00 the Medical per tablet morning. Branc h potassium 2022-0 Yes [id number] 10meq Take 1 U nivers chloride 10 9-11 tablet by ity of mEq CR 00:00: mouth in [place] tablet 00 the Medical morning. Branch metoprolol 2022-0 Yes [id number] 100mg Take 1 Univers succinate 9-11 tablet by ity o f XL 100 mg 00:00: mouth in [facility] 24 hr 00 the Medical tablet morning. Branch lisinopriL- 2022-0 Yes [id number] 1{tbl} Take 1 Univers hydrochloro 9-11 tablet by ity of thiazide 00:00: mouth in [place] 20-12.5 mg 00 the Medical per tablet morning. Branc h potassium 2022-0 Yes [id number] 10meq Take 1 U nivers chloride 10 9-11 tablet by ity of mEq CR 00:00: mouth in [place] tablet 00 the Medical morning. Branch metoprolol 2022-0 Yes [id number] 100mg Take 1 Univers succinate 9-11 tablet by ity o f XL 100 mg 00:00: mouth in [place] 24 [place] 00 the Medical tablet morning. Branch lisinopriL- 2022-0 Yes [id number] 1{tbl} Take 1 Univers hydrochloro 9-11 tablet by ity of thiazide 00:00: mouth in [place] 20-12.5 mg 00 the Medical per tablet morning. Branc h potassium 2022-0 Yes [id number] 10meq Take 1 U nivers chloride 10 9-11 tablet by ity of mEq CR 00:00: mouth in [place] tablet 00 the Medical morning. Branch metoprolol 2022-0 Yes [id number] 100mg Take 1 Univers succinate 9-11 tablet by ity o f XL 100 mg 00:00: mouth in [place] 24 [place] 00 the Medical tablet morning. Branch lisinopriL- 2022-0 Yes [id number] 1{tbl} Take 1 Univers hydrochloro 9-11 tablet by ity of thiazide 00:00: mouth in [place] 20-12.5 mg 00 the Medical per tablet morning. Branc h potassium 2022-0 Yes [id number] 10meq Take 1 U nivers chloride 10 9-11 tablet by ity of mEq CR 00:00: mouth in [place] tablet 00 the Medical morning. Branch metoprolol 2022-0 Yes [id number] 100mg Take 1 Univers succinate 9-11 tablet by ity o f XL 100 mg 00:00: mouth in [facility] 24 hr 00 the Medical tablet morning. Branch lisinopriL- 2022-0 Yes [id number] 1{tbl} Take 1 Univers hydrochloro 9-11 tablet by ity of thiazide 00:00: mouth in [place] 20-12.5 mg 00 the Medical per tablet morning. Branc h potassium 2022-0 Yes [id number] 10meq Take 1 U nivers chloride 10 9-11 tablet by ity of mEq CR 00:00: mouth in [place] tablet 00 the Medical morning. Branch metoprolol 2022-0 Yes [id number] 100mg Take 1 Univers succinate 9-11 tablet by ity o f XL 100 mg 00:00: mouth in [facility] 24 hr 00 the Medical tablet morning. Branch lisinopriL- 2022-0 Yes [id number] 1{tbl} Take 1 Univers hydrochloro 9-11 tablet by ity of thiazide 00:00: mouth in [place] 20-12.5 mg 00 the Medical per tablet morning. Branc h potassium 3-0 Yes [id number] 10meq Take 1 U nivers chloride 10 9-11 tablet by ity of mEq CR 00:00: mouth in [place] tablet 00 the Medical morning. Branch metoprolol 3-0 Yes [id number] 100mg Take 1 Univers succinate 9-11 tablet by ity o f XL 100 mg [facility] the Medical tablet morning. Branch lisinopriL- 3-0 Yes [id number] 1{tbl} Take 1 Univers hydrochloro 9-11 tablet by ity of thiazide 00:00: mouth in [place] 20-12.5 mg 00 the Medical per tablet morning. Bran h potassium 2022-0 Yes [id number] 10meq Take 1 U nivers chloride 10 9-11 tablet by ity of mEq CR 00:00: mouth in [place] tablet 00 the Medical morning. Branch metoprolol 2022-0 Yes [id number] 100mg Take 1 Univers succinate 9-11 tablet by ity o f XL 100 mg 00:00: [place] 24 [place] 00 the Medical tablet morning. Branch lisinopriL- 2022-0 Yes [id number] 1{tbl} Take 1 Univers hydrochloro 9-11 tablet by ity of thiazide 00:00: mouth in [place] 20-12.5 mg 00 the Medical per tablet morning. Bran h potassium 2022-0 Yes [id number] 10meq Take 1 U nivers chloride 10 9-11 tablet by ity of mEq CR 00:00: mouth in [place] tablet 00 the Medical morning. Branch metoprolol 2022-0 Yes [id number] 100mg Take 1 Univers succinate 9-11 tablet by ity o f XL 100 mg 00:00: [place] 24 [place] 00 the Medical tablet morning. Branch lisinopriL- 2022-0 Yes [id number] 1{tbl} Take 1 Univers hydrochloro 9-11 tablet by ity of thiazide 00:00: mouth in [place] 20-12.5 mg 00 the Medical per tablet morning. Bran h potassium 2022-0 Yes [id number] 10meq Take 1 U nivers chloride 10 9-11 tablet by ity of mEq CR 00:00: mouth in [place] tablet 00 the Medical morning. Branch metoprolol 2022-0 Yes [id number] 100mg Take 1 Univers succinate 9-11 tablet by ity o f XL 100 mg 00:00: [place] 24 [place] 00 the Medical tablet morning. Branch lisinopriL- 2022-0 Yes [id number] 1{tbl} Take 1 Univers hydrochloro 9-11 tablet by ity of thiazide 00:00: mouth in [place] 20-12.5 mg 00 the Medical per tablet morning. Bran h potassium 2022-0 Yes [id number] 10meq Take 1 U nivers chloride 10 9-11 tablet by ity of mEq CR 00:00: mouth in [place] tablet 00 the Medical morning. Branch metoprolol 3-0 Yes [id number] 100mg Take 1 Univers succinate 9-11 tablet by ity o f XL 100 mg 00:00: mouth in [place] 24 hr 00 the Medical tablet morning. Branch lisinopriL- 3-0 Yes [id number] 1{tbl} Take 1 Univers hydrochloro 9-11 tablet by ity of thiazide 00:00: mouth in [place] 20-12.5 mg 00 the Medical per tablet morning. Branc h potassium 2022-0 Yes [id number] 10meq Take 1 U nivers chloride 10 9-11 tablet by ity of mEq CR 00:00: mouth in [place] tablet 00 the Medical morning. Branch metoprolol 2022-0 Yes [id number] 100mg Take 1 Univers succinate 9-11 tablet by ity o f XL 100 mg 00:00: mouth in [facility] 24 hr 00 the Medical tablet morning. Branch lisinopriL- 2022-0 Yes [id number] 1{tbl} Take 1 Univers hydrochloro 9-11 tablet by ity of thiazide 00:00: mouth in [place] 20-12.5 mg 00 the Medical per tablet morning. Branc h potassium 2022-0 Yes [id number] 10meq Take 1 U nivers chloride 10 9-11 tablet by ity of mEq CR 00:00: mouth in [place] tablet 00 the Medical morning. Branch metoprolol 3-0 Yes [id number] 100mg Take 1 Univers succinate 9-11 tablet by ity o f XL 100 mg 00:00: mouth in [facility] 24 hr 00 the Medical tablet morning. Branch lisinopriL- 2022-0 Yes [id number] 1{tbl} Take 1 Univers hydrochloro 9-11 tablet by ity of thiazide 00:00: mouth in [place] 20-12.5 mg 00 the Medical per tablet morning. Branc h potassium 3-0 Yes [id number] 10meq Take 1 U nivers chloride 10 9-11 tablet by ity of mEq CR 00:00: mouth in [place] tablet 00 the Medical morning. Branch metoprolol 3-0 Yes [id number] 100mg Take 1 Univers succinate 9-11 tablet by ity o f XL 100 mg 00:00: [place] 24 [place] 00 the Medical tablet morning. Branch lisinopriL- Yes [id number] 1{tbl} Take 1 Univers hydrochloro 9-11 tablet by ity of thiazide 00:00: mouth in [place] 20-12.5 mg 00 the Medical per tablet morning. Branc h potassium Yes [id number] 10meq Take 1 U nivers chloride 10 [...] Branch SEEN FOR FURTHER REFILLS amlodipine- Yes [id number] 1{capsu Take 1 Univers benazepril 6-19 le} capsule by ity of 5-10 mg per 00:00: mouth [place] capsule 00 daily. Medical Follow up Branch required for additional RF amlodipine- Yes [id number] 1{capsu Take 1 Univers benazepril 6-19 le} capsule by ity of 5-10 mg per 00:00: mouth [place] capsule 00 daily. Medical Follow up Branch required for additional RF amlodipine- 2022- No [id number] 1{capsu Take 1 Univers benazepril 6-19 09-11 le} capsule by it y of 5-10 mg per 00:00: 00:00 [place] capsule 00 :00 daily. Medical Follow up Branch required for additional RF amlodipine- 2022- No [id number] 1{capsu Take 1 Univers benazepril 02-02 le} capsule by it y of 5-10 mg per 00:00: 00:00 [place] capsule 00 :00 daily. Medical Follow up Branch required for additional RF fluticasone Yes [id number] 2{spray Use 2 Univers 50 5-23 } Sprays in ity of mcg/actuati 00:00: each [place] on nasal 00 nostril Medical spray daily. Branch azelastine Yes [id number] 1{spray Use 1 Univers 137 mcg 5-23 } [place] in ity of (0.1 %) 00:00: each [place] nasal spray 00 nostril 2 Med ical (two) Branch times daily. Use in each nostril as directed fluticasone Yes [id number] 2{spray Use 2 Univers 50 5-23 } Sprays in ity of mcg/actuati 00:00: each [place] on nasal 00 nostril Medical spray daily. Branch azelastine Yes [id number] 1{spray Use 1 Univers 137 mcg 5-23 } [place] in ity of (0.1 %) 00:00: each [place] nasal spray 00 nostril 2 Med ical (two) Branch times daily. Use in each nostril as directed fluticasone 2022- No [id number] 2{spray Use 2 Univers 50 5-23 09-11 } Sprays in ity of mcg/actuati 00:00: 00:00 each [place] on nasal 00 :00 nostril Medical spray daily. Branch azelastine 2022- No [id number] 1{spray Use 1 Univers 137 mcg 5-23 09-11 } [place] in ity of (0.1 %) 00:00: 00:00 each [place] nasal spray 00 :00 nostril 2 Med ical (two) Branch times daily. Use in each nostril as directed fluticasone 2022- No [id number] 2{spray Use 2 Univers 50 5-23 09-11 } Sprays in ity of mcg/actuati 00:00: 00:00 each [place] on nasal 00 :00 nostril Medical spray daily. Branch javier 2016-0 3- No [id number] 1{spray Use 1 Univers 137 mcg 01-06 } [place] in ity of (0.1 %) 00:00: 00:00 each [place] nasal spray 00 :00 nostril 2 Med ical (two) Branch times daily. Use in each nostril as directed Vital Signs Vital Name Observation Time Observation Value Comments Source Systolic blood 2023-05-14 19:41:00 148 mm[Hg] Univer sity of [facility] Diastolic blood 2023-05-14 19:41:00 97 mm[facility]Hg[facility] 2023-05-14 19:40:00 70 /min [facility] Respiratory rate 2023-05-14 19:40:00 18 /min [facility] height 2023-05-14 19:40:00 182.9 cm [facility] Body weight 2023-05-14 19:40:00 96.888 kg [facility] BMI 2023-05-14 19:40:00 28.97 kg/m2 [facility] Oxygen saturation in 2023-05-14 19:40:00 99 /min University of Arterial blood by [facility] Pulse oximetry [place] Respiratory rate 2023-04-28 19:59:00 19 /min [facility] Body height 2023-04-28 19:59:00 182.9 cm [facility] Body weight 2023-04-28 19:59:00 101.651 kg [facility] BMI 2023-04-28 19:59:00 30.39 kg/m2 [facility] Oxygen saturation in 2023-04-28 19:59:00 97 /min University of Arterial blood by [facility] Pulse oximetry [place] Systolic blood 2023-04-28 19:59:00 137 mm[Hg] Univer sity of [facility] Diastolic blood 2023-04-28 19:59:00 88 mm[Hg] Unive rsity of [facility] Heart rate 2023-04-28 19:59:00 76 /min Universi ty [facility] Systolic blood 2023-04-27 13:56:00 127 mm[Hg] Univer sity of pressure [facility] Diastolic blood 2023-04-27 13:56:00 87 mm[Hg] Unive rsity of pressure [facility] Heart rate 2023-04-27 13:56:00 65 /min [facility] Respiratory rate 2023-04-27 13:56:00 18 /min Univ ersity of [facility] Body height 2023-04-27 13:56:00 182.9 cm [facility] Body weight 2023-04-27 13:56:00 99.791 kg [facility] BMI 2023-04-27 13:56:00 29.84 kg/m2 [facility] Oxygen saturation in 2023-04-27 13:56:00 99 /min University Arterial blood by [facility] Pulse oximetry [place] Systolic blood 2023-05-06 13:12:07 126 mm[Hg] [facility] pressure Diastolic blood 2023-05-06 13:12:07 81 mm[Hg] [facility] pressure Heart rate 2023-05-06 13:12:07 64 /min [facility] Body temperature 2023-05-06 13:12:07 36.78 Debo [facility] Respiratory rate 2023-05-06 13:12:07 17 /min [facility] Oxygen saturation in 2023-05-06 13:12:07 97 /min [facility] Arterial blood by Pulse oximetry Body height 2023-05-05 22:49:00 182.9 cm [facility] Body weight 2023-05-05 22:49:00 95.255 kg [facility] BMI 2023-05-05 22:49:00 28.48 kg/m2 [facility] Procedures Procedure Date / Time Performing Clinician Source Performed TROPONIN T 2023-05-06 02:50:00 Jael Cuellar [facility] URINE CULTURE 2023-05-06 02:21:00 Yi Tee [facility] COVID-19 QUALITATIVE 2023-05-06 02:04:00 Kim Stoll [facility] RT-PCR [place] TROPONIN T 2023-05-06 02:04:00 [facility] AND 2023-05-06 02:04:00 Yi Tee [facility] MICROSCOPY, WITH REFLEX TO CULTURE XR CHEST 1 VW PORTABLE 2023-05-06 01:59:00 [facility] [place] ECG ED PRELIMINARY 2023-05-06 01:09:11 [facility] INTERPRETATION [place] ECG 12-LEAD 2023-05-05 22:58:01 [facility] CBC WITH PLATELET AND 2023-05-05 22:57:00 [facility] DIFFERENTIAL COMPREHENSIVE METABOLIC 2023-05-05 22:57:00 [facility] PANEL TROPONIN T 2023-05-05 22:57:00 [facility] NT-PROBNP 2023-05-05 22:57:00 [facility] ESTIMATED GFR 2023-05-05 22:57:00 [facility] EXTERNAL PROVIDER RECORDS 2023-05-05 05:01:00 Doctor Unassigned, [facility] [place] [facility] ASSIGNMENT OF BENEFITS 2023-04-27 13:45:25 Doctor Unassigned, [facility] [place] Medical [facility] Plan of Care Planned Activity Planned Date Details Comments Source Future Scheduled 2023-05-18 Screening for [facility] Test 11:02:35 malignant neoplasm of colon (procedure) [code = 713403119] Future Scheduled 2023-05-18 Screening for [facility] Test 11:02:35 malignant neoplasm of colon (procedure) [code = 113658471] Future Scheduled 2023-05-18 Screening for [facility] Test 11:02:35 malignant neoplasm of colon (procedure) [code = 596316714] Future Scheduled 2023-05-18 COVID-19 VACCINE [facility] Test 11:02:35 (#1) [code = COVID-19 VACCINE (#1)] Future Scheduled 2023-05-18 [facility] Test 11:02:35 screening (procedure) [code = 337912571] Future Scheduled 2023-05-18 Screening for [facility] Test 11:02:35 malignant neoplasm of colon (procedure) [code = 106590463] Future Scheduled 2023-05-18 Screening for [facility] Test 11:02:35 malignant neoplasm of colon (procedure) [code = 584002251] Future Scheduled 2023-05-18 SHINGLES VACCINES [facility] Test 11:02:35 (1 of 2) [code = SHINGLES VACCINES (1 of 2)] Future Scheduled 2023-05-18 INFLUENZA VACCINE [facility] Test 11:02:35 (#1) [code = INFLUENZA VACCINE (#1)] Encounters Start End Encounter Admission Attending Care Care Encounter Source Date/Time Date/Time Type Type Clinicians Facility Department ID 2023-06-02 2023-06-02 [facility] [id number] Univers 10:00:00 10:00:00 [facility] 2023-05-14 2023-05-14 Office [facility] [id number] Univers 14:30:00 14:45:00 Visit [facility] [id number] it y of [place] [id number] Ghanshyam as DALI?BLEA [id number] [place] al[place] BASSETTEY 044 [place] MEDICAL OFFICE BUILDING 2023-05-14 2023-05-14 Outpatient [facility] [id number] Univers 14:30:00 14:30:00 [facility] 2023-05-14 2023-05-14 Outpatient Violette [facility] [id number] Univers 12:45:00 12:45:00 [facility] 2023-05-14 2023-05-14 Telephone [facility] [id number] Univers 00:00:00 00:00:00 [facility] [id number] ity of [place]2.[place].2.[place] PROFESS[place] [id number] La rubinsc JAY 059 Branch BUILDING 2023-05-11 2023-05-11 [facility]phone [facility] [id number] Univers 00:00:00 00:00:00 Debra HEALTH [id number] it y [facility] 4.2.7.2.686 Ghanshyam as DALI?BLEA [id number] [address] OFFICE [facility] 2023-05-09 2023-05-09 Telephone [facility] [id number] Univers 00:00:00 00:00:00 Debra HEALTH [id number] it y of [place] 4.2.7.2.686 Ghanshyam as DALI?BLEA [id number] [address] 2023-05-05 2023-05-06 Emergency Yi Tee [id number] Methodi 17:51:00 13:50:00 Carey Lindsay [id number] Carey Coello 3.430.2.7 Hospita .[id number] l .8 2023-05-05 2023-05-06 Outpatient [facility] Hos [id number] 823 [place] 00:00:00 00:00:00 CAREY Copeland i 2023-05-05 2023-05-05 Orders Doctor AURELIA [id number] Univers 00:00:00 00:00:00 Only Unassigned, IRASEMA [id number] ity of [place] [facility] 4.2.7.2.686 Ghanshyam as [id number] [address] 2023-05-05 2023-05-05 Telephone [facility] [id number] Univers 00:00:00 00:00:00 Debra HEALTH [id number] it y [facility] 4.2.7.2.686 Ghanshyam as DALI?BLEA [id number] [address] 2023-05-04 2023-05-04 Telephone [facility] [id number] Univers 00:00:00 00:00:00 Debra HEALTH [id number] it y [facility] 4.2.7.2.686 Ghanshyam as DALI?BLEA [id number] [facility] 044 [facility] OFFICE [facility] 2023-04-28 2023-04-28 Outpatient [facility] [id number] Univers 16:00:00 16:00:00 [facility] o f [facility] 2023-04-28 2023-04-28 [employer] 2, Adc Lab [facility] [id number] Univers 15:45:00 16:00:00 Visit Shahab Bhatti 350.1.13.10 ity of [facility] 4.2.[place].2.[place] [id number] La dicsc NAL 353 [facility] 2023-04-28 2023-04-28 Outpatient R [facility] [id number] Univers 15:00:00 15:42:[facility] 2023-04-28 2023-04-28 Office [facility] [id number] Univers 15:00:00 15:42:09 Visit [facility] NITZA [id number] ity [facility] 4.2.7.2.[place] [id number] La dicsc NAL 059 [facility] 2023-04-27 2023-04-27 Outpatient R [facility] [id number] Univers 09:00:00 09:38:57 DEBRA ity [facility] 2023-04-27 2023-04-27 Office [facility] [id number] Univers 09:00:00 09:30:00 Visit [facility] [id number] it y [facility] 4.2.7.2.686 Ghanshyam as DALI?BLEA [id number] [address] OFFICE [facility] 2023-04-27 2023-04-27 Orders Doctor MOSES [id number] Univers 00:00:00 00:00:00 Only Unassigned, IRASEMA [id number] ity of [facility] [id number] Ghanshyam as [phone] [address] 2023-04-23 2023-04-23 Outpatient [facility] [id number] [facility] 09:00:00 09:00:00 [facility] 2023-04-21 2023-04-21 [facility] [id number] Univers 00:00:00 00:00:00 [facility] [id number] it y of [place] [id number] Ghanshyam as DALI?BLEA [phone] [address] MEDICAL OFFICE BUILDING 2021-04-21 2021-04-[address] [facility] [id number] Univers 16:00:00 16:00:00 [id number] [facility] 2021-04-21 2021-04-21 Outpatient Violette [facility] [id number] Univers 16:00:00 16:00:00 [facility] Test Description Test Time Test Comments Results Result Comments Source ECG 12 lead 2023-05-08 02:31:44 Test Item Value Reference Range Interpretation Comme nts Ventricular rate (test code = 253) 69 Atrial rate (test code = 255) 69 ND interval (test code = 266) 174 QRSD interval (test code = 260) 104 QT interval (test code = 264) 410 QTC interval (test code = 265) 439 P axis 1 (test code = 267) 44 QRS axis 1 (test code = 268) 9 T wave axis (test code = 270) 19 EKG impression (test code = 273) Normal sinus rhythm-Normal ECG-No previous ECGs available- [facility] [id number] 03:02:00 Test Item Value Reference Range Interpretation Comments Urine culture (test SEE COMMENT Bacteriu sam screen code = 1772154) negative. [facility] [Presence] in Respiratory specimen by BARBARA with probe [id number] 00:09:33 Test Item Value Reference Range Interpretation Comments SARS-CoV-2 (COVID-19) RNA Not detected [Presence] in Respiratory specimen by BARBARA with probe detection (test code = 93994-1) Whether patient is employed in a Unknown healthcare setting (test code = 19363-6) Whether the patient has symptoms Unknown related to condition of interest (test code = 13319-5) Whether the patient was Unknown hospitalized for condition of interest (test code = 77324-5) Whether the patient was admitted Unknown to intensive care unit (ICU) for condition of interest (test code = 86244-0) Whether patient resides in a Unknown congregate care setting (test code = 20303-4) status (test code = Unknown 96516-5) Date and time of symptom onset Unknown (test code = 33985-3) CELESTE MORGAN
[2023-05-19 17:12] LABS: Absolute Lymphocytes (CBC) 1.6 K/uL (0.7-4.9); Lymphocytes % 29.7 % (15.3-44.8); MCV 90.5 fL (80-100); MPV 8.1 fL (7.6-11.3); Platelets 175 thou/uL (152-406); RBC Red Blood Cell Count 4.76 M/uL (4.33-5.43)
[2023-05-19] MEDS ORDERED: DIPHENHYDRAMINE 50 MG/ML VIAL ONE (17:20)
[2023-05-19] MEDS ORDERED: METHYLPREDNISOLONE 125 MG INJ ONE (17:20)
[2023-05-19] MEDS ORDERED: FAMOTIDINE 20 MG/2 ML VIAL IV ONE (17:20)
[2023-05-19] MEDS ORDERED: EPINEPHRINE/PF 1 MG/ML AMP ONE (17:24)
[2023-05-19 17:30] LABS: Albumin 3.8 g/dL (3.4-5.0); Bilirubin Total 1.1 mg/dL (0.2-1.0); Potassium 3.6 mEq/L (3.5-5.1); Troponin High Sensitivity 9.9 pg/mL (<58.9)
--- NOTE | 2023-05-19 18:00 | RAD REPORT ---
EXAM DESCRIPTION: RAD - Chest Single View - 05/19/2023 5:47 pm CLINICAL HISTORY: DYSPNEA Chest pain. COMPARISON: Chest Single View dated 05/04/2023; Chest Single View dated 04/22/2023; Chest Single View d ated 04/19/2023; Chest Single View dated 04/16/2023 FINDINGS: Portable technique limits examination quality. The lungs are grossly clear. The heart is normal in size. No displaced fractures. IMPRESSION: No acute intrathoracic process suspected.
--- NOTE | 2023-05-19 18:55 | ER ---
Nurse's Notes [facility] Name: Davion Andrade Age: 58 yrs Sex: Male : 1965 Arrival Date: 05/19/2023 Time: 16:31 Bed 5 Private MD: Diagnosis: Angioedema Presentation: 05/19 16:36 Acuity: BRAYDEN 2 aa5 16:40 Chief complaint: Patient states: "I am not sure what is going on but I feel like there aa5 is something in my throat and like it's swollen and it's making me short of breath". Pt states "they have been changing my blood pressure medication and the newest one is amlodipine". Pt reports he is able to tolerate fluids, states "I am able to eat but it's a little hard to get down". Coronavirus screen: At this time, the client does not indicate any symptoms associated with coronavirus-19. Ebola Screen: Patient denies travel to an Ebola-affected area in the 21 days before illness onset. Initial Sepsis Screen: Does the patient meet any 2 criteria? No. Patient's initial sepsis screen is negative. Does the patient have a suspected source of infection? No. Patient's initial sepsis screen is negative. Risk Assessment: Do you want to hurt yourself or someone else? Patient reports no desire to harm self or others. Onset of symptoms was May 19, 2023 at 15:40. 16:40 Method Of Arrival: Ambulatory aa5 Triage Assessment: 19:37 General: Appears comfortable. General: Behavior is calm, cooperative. Respiratory: rv Onset: The symptoms/episode began/occurred gradually, the patient has mild shortness of breath. Respiratory: Breath sounds are clear bilaterally. Respiratory: Airway is patent Respiratory effort is even, unlabored. Respiratory: Reports shortness of breath at rest. Historical: - Allergies: 16:36 No Known Allergies; aa5 - Home Meds: 16:39 Metoprolol Tartrate Oral [Active]; Lisinopril Oral [Active]; amlodipine oral [Active]; aa5 - PMHx: 16:36 Hypertensive disorder; aa5 - Immunization history:: Adult Immunizations up to date. - Social history:: Smoking status: Patient denies any tobacco usage or history of. unknown. Screenin:44 [facility] ED Fall Risk Assessment (Adult) History of falling in the last 3 months, kc6 including since admission No falls in past 3 months (0 pts) Confusion or Disorientation No (0 pts) Intoxicated or Sedated Yes (3 pts) Impaired Gait Yes (1 pt) Mobility Assist Device Used No (0 pt) Altered Elimination No (0 pt) Score/Fall Risk Level 0 - 2 = Low Risk. Abuse screen: Denies threats or abuse. Denies injuries from another. Nutritional screening: No deficits noted. Tuberculosis screening: No symptoms or risk factors identified. Assessment: 16:45 General: Appears in no apparent distress. comfortable, Behavior is calm, cooperative, kc6 appropriate for age. Pain: Denies pain. Neuro: Level of Consciousness is awake, alert, obeys commands, Oriented to person, place, time, situation, Appropriate for age. Cardiovascular: Denies chest pain, Capillary refill < 3 seconds Rhythm is sinus rhythm. Respiratory: Reports shortness of breath Airway is patent Trachea midline Respiratory effort is even, unlabored, Respiratory pattern is regular, symmetrical, Breath sounds are clear bilaterally. GI: No signs and/or symptoms were reported involving the gastrointestinal system. : No signs and/or symptoms were reported regarding the genitourinary system. EENT: Reports difficulty swallowing. Derm: No signs and/or symptoms reported regarding the dermatologic system. Skin is intact, is healthy with good turgor, Skin is pink, warm \\T\\ dry. Musculoskeletal: No signs and/or symptoms reported regarding the musculoskeletal system. Circulation, motion, and sensation intact. Capillary refill < 3 seconds, Range of motion: intact in all extremities. 17:45 Reassessment: Patient appears in no apparent distress at this time. No changes from kc6 previously documented assessment. Patient and/or family updated on plan of care and expected duration. Pain level reassessed. Patient is alert, oriented x 3, equal unlabored respirations, skin warm/dry/pink. 18:45 Reassessment: Patient appears in no apparent distress at this time. No changes from kc6 previously documented assessment. Patient and/or family updated on plan of care and expected duration. Pain level reassessed. Patient is alert, oriented x 3, equal unlabored respirations, skin warm/dry/pink. 19:39 Respiratory: Airway is patent Respiratory effort is even, unlabored. rv Vital Signs: 16:40 BP 142 / 98; Pulse 74; Resp 20 S; Temp 97.5(TE); Pulse Ox 98% on R/A; Weight 99.79 kg aa5 (R); Height 6 ft. 0 in. (R); 17:25 BP 147 / 88; Pulse 73; Resp 19 S; Pulse Ox 99% on R/A; kc6 17:59 BP 150 / 99; Pulse 71; Resp 18 S; Pulse Ox 98% on R/A; kc6 18:49 BP 123 / 82; Pulse 75; Resp 17 S; Pulse Ox 97% on R/A; kc6 19:37 BP 140 / 92; Pulse 80; Resp 16; Temp 98; Pulse Ox 98% on R/A; rv 16:40 Body Mass Index 29.84 (99.79 kg, 182.88 cm) aa5 [place] Coma Score: 19:37 Eye Response: spontaneous(4). Motor Response: obeys commands(6). Verbal Response: rv oriented(5). Total: 15. ED Course: 16:34 Patient arrived in ED. im 16:35 Nelson Jones MD is Attending Physician. rt 16:36 Arm band placed on Patient placed in an exam room, on a stretcher. aa5 16:40 Kay Fuller RN is Primary Nurse. kc6 16:40 Triage completed. aa5 16:44 Patient has correct armband on for positive identification. Placed in gown. Bed in low kc6 position. Call light in reach. Side rails up X 1. Client placed on continuous cardiac and pulse oximetry monitoring. NIBP monitoring applied. upholstery handler on. 17:23 Inserted saline lock: 20 gauge in left forearm, using aseptic technique. Blood kc6 collected. Patient maintains SpO2 saturation greater than 95% on room air. 17:49 Chest Single View XRAY In Process Unspecified. EDMS 18:54 Maria E Parra MD is Hospitalizing Provider. rt 19:04 Primary Nurse role handed off by Kay Fuller, LAWRENCE bp 19:04 Samuel Eaton, LAWRENCE is Primary Nurse. bp 19:38 Provided Education on:. rv 19:38 No provider procedures requiring assistance completed. Patient admitted, IV remains in rv place. Administered Medications: 17:23 Drug: MethylPrednisoLONE IVP 125 mg IVP once Route: IVP; Site: left forearm; kc6 17:40 Follow up: Response: No adverse reaction kc6 17:23 Drug: diphenhydrAMINE IVP 50 mg IVP once Route: IVP; Site: left forearm; kc6 17:40 Follow up: Response: No adverse reaction kc6 17:23 Drug: Famotidine IVP 20 mg IVP once; dilute with 10 mL 0.9% NaCl; give over 2 minutes kc6 Route: IVP; Site: left forearm; 17:39 Follow up: Response: No adverse reaction kc6 17:24 Drug: EPINEPHrine 1:1000 Sub-Q 1:1,000 0.3 ml Sub-Q once Route: Sub-Q; Site: left upper kc6 arm; 17:39 Follow up: Response: No adverse reaction kc6 Medication: 19:38 VIS not applicable for this client. rv Outcome: 18:55 Decision to Hospitalize by Provider. rt 19:41 Condition: stable bp 19:41 Instructed on the need for admit, 20:11 Admitted to Med/surg accompanied by tech, via wheelchair, room 210, with chart, Report bp called to ANU BRAVO 20:25 Patient left the ED. rv Signatures: Dispatcher [employer] EDMS Edelmira Arreola RN RN aa5 Samuel Eaton RN RN bp Helio Williamson RN RN rv Kay Fuller RN RN kc6 Nelson Jones MD MD rt Helena Varma
--- NOTE | 2023-05-19 18:55 | EDPHYS ---
Physician Documentation [facility] Name: Davion Andrade Age: 58 yrs Sex: Male : 1965 Arrival Date: 05/19/2023 Time: 16:31 Bed 5 Private MD: ED Physician Nelson Jones HPI: 05/19 17:54 This 58 yrs old Male presents to ER via Ambulatory with complaints of Shortness Of rt Breath, Neck Swelling. 17:54 Patient presents to the ED with about 1.5 hours of reported neck swelling causing to rt have shortness of breath. Patient states that he is concerned because he just darted amlodipine. Denies itching. Denies other acute complaints at this time. Symptoms initially worsened fairly rapidly but have plateaued. Denies chest pain. Denies other acute complaints, symptoms are moderate severity, no other aggravating alleviating factors.. Historical: - Allergies: 16:36 No Known Allergies; aa5 - Home Meds: 16:39 Metoprolol Tartrate Oral [Active]; Lisinopril Oral [Active]; amlodipine oral [Active]; aa5 - PMHx: 16:36 Hypertensive disorder; aa5 - Immunization history:: Adult Immunizations up to date. - Social history:: Smoking status: Patient denies any tobacco usage or history of. unknown. ROS: 17:54 Constitutional: Negative for fever, chills, and weight loss, Cardiovascular: Negative rt for chest pain, palpitations, and edema, Abdomen/GI: Negative for abdominal pain, nausea, vomiting, diarrhea, and constipation, MS/Extremity: Negative for injury and deformity, Skin: Negative for injury, rash, and discoloration, Neuro: Negative for headache, weakness, numbness, tingling, and seizure, Psych: Negative for depression, anxiety, suicide ideation, homicidal ideation, and hallucinations, 17:54 ENT: Positive for Swelling, negative for sore throat, 17:54 Respiratory: Positive for shortness of breath, Negative for cough, Exam: 17:54 Constitutional: This is a well developed, well nourished patient who is awake, alert, rt and in no acute distress. Head/Face: Normocephalic, atraumatic. Chest/axilla: Normal chest wall appearance and motion. Nontender with no deformity. No lesions are appreciated. Cardiovascular: Regular rate and rhythm with a normal S1 and S2. No gallops, murmurs, or rubs. Normal PMI, no JVD. No pulse deficits. Respiratory: Lungs have equal breath sounds bilaterally, clear to auscultation and percussion. No rales, rhonchi or wheezes noted. No increased work of breathing, no retractions or nasal flaring. Abdomen/GI: Soft, non-tender, with normal bowel sounds. No distension or tympany. No guarding or rebound. No evidence of tenderness throughout. Skin: Warm, dry with normal turgor. Normal color with no rashes, no lesions, and no evidence of cellulitis. MS/ Extremity: Pulses equal, no cyanosis. Neurovascular intact. Full, normal range of motion. Neuro: Awake and alert, GCS 15, oriented to person, place, time, and situation. Cranial nerves II-XII grossly intact. Motor strength 5/5 in all extremities. Sensory grossly intact. Cerebellar exam normal. Normal gait. Psych: Awake, alert, with orientation to person, place and time. Behavior, mood, and affect are within normal limits. 17:54 ENT: Edema noted to uvula, no other edema present, no posterior pharyngeal erythema or exudates. 17:54 ECG was reviewed by the Attending Physician. Vital Signs: 16:40 BP 142 / 98; Pulse 74; Resp 20 S; Temp 97.5(TE); Pulse Ox 98% on R/A; Weight 99.79 kg aa5 (R); Height 6 ft. 0 in. (R); 17:25 BP 147 / 88; Pulse 73; Resp 19 S; Pulse Ox 99% on R/A; kc6 17:59 BP 150 / 99; Pulse 71; Resp 18 S; Pulse Ox 98% on R/A; kc6 18:49 BP 123 / 82; Pulse 75; Resp 17 S; Pulse Ox 97% on R/A; kc6 19:37 BP 140 / 92; Pulse 80; Resp 16; Temp 98; Pulse Ox 98% on R/A; rv 16:40 Body Mass Index 29.84 (99.79 kg, 182.88 cm) aa5 [place] Coma Score: 19:37 Eye Response: spontaneous(4). Motor Response: obeys commands(6). Verbal Response: rv oriented(5). Total: 15. MDM: 16:38 Patient medically screened. rt 18:55 Differential diagnosis: Anaphylaxis, angioedema, pharyngitis. Data reviewed: vital rt signs, nurses notes, lab test result(s), EKG, radiologic studies. Consideration of Admission/Observation Patient was admitted/placed on observation. Management of patient was discussed with the following: Hospitalist: Agrees to admit. I considered the following discharge prescriptions or medication management in the emergency department Medications were administered in the Emergency Department. See MAR. Independent interpretation of the following test(s) in the Emergency Department X-Ray: My interpretation is Lungs clear all on my interpretation of the x-ray images. Test considered but Not performed: CT: Do not suspect RPA, LEGAL MANAGER, CT scan not indicated. Care significantly affected by the following chronic conditions: Hypertension. Counseling: I had a detailed discussion with the patient and/or guardian regarding the historical points, exam findings, and any diagnostic results supporting the discharge/admit diagnosis, lab results, radiology results, the need for further work-up and treatment in the hospital. Response to treatment: There is no appreciated change of the patient's symptoms at this time. 10 16:59 Order name: CBC with Diff; Complete Time: 17:31 rt 05/19 16:59 Order name: CMP; Complete Time: 17:31 rt 05/19 16:59 Order name: Troponin High Sensitivity; Complete Time: 17:31 rt 05/19 16:59 Order name: Chest Single View XRAY; Complete Time: 18:02 rt 05/19 16:59 Order name: EKG; Complete Time: 17:00 rt 05/19 16:59 Order name: EKG - Nurse/Tech; Complete Time: 17:05 rt EC:54 Rate is 65 beats/min. Rhythm is regular, Normal Sinus Rhythm with No ectopy. QRS [place] rt is Normal. SC interval is normal. QRS interval is normal. QT interval is normal. No Q waves. T waves are Normal. No ST changes noted. Interpreted by me. Administered Medications: 17:23 Drug: MethylPrednisoLONE IVP 125 mg IVP once Route: IVP; Site: left forearm; kc6 17:40 Follow up: Response: No adverse reaction kc6 17:23 Drug: diphenhydrAMINE IVP 50 mg IVP once Route: IVP; Site: left forearm; kc6 17:40 Follow up: Response: No adverse reaction kc6 17:23 Drug: Famotidine IVP 20 mg IVP once; dilute with 10 mL 0.9% NaCl; give over 2 minutes kc6 Route: IVP; Site: left forearm; 17:39 Follow up: Response: No adverse reaction kc6 17:24 Drug: EPINEPHrine 1:1000 Sub-Q 1:1,000 0.3 ml Sub-Q once Route: Sub-Q; Site: left upper kc6 arm; 17:39 Follow up: Response: No adverse reaction kc6 Disposition Summary: 05/19/23 18:55 Hospitalization Ordered Notes: Hospitalization Status: Observation rt Provider: Maria E Parra rt Location: Telemetry/MedSurg (observation) rt Condition: Stable rt Problem: new rt Symptoms: are unchanged rt Bed/Room Type: Standard rt Room Assignment: 210(05/19/23 19:34) cg Diagnosis - Angioedema rt Forms: - Medication Reconciliation Form rt - SBAR form rt - Leadership Thank You Letter rt Signatures: Dispatcher [employer] Edelmira Yee RN RN aa5 Lashae Benson RN RN Helio Hobbs RN RN Kay Harrison RN RN kc6 Nelson Jones MD MD rt Corrections: (The following items were deleted from the chart) 19:34 18:55 rt cg
--- NOTE | 2023-05-19 19:00 | P.HP ---
Certification for Inpatient Patient admitted to: Observation With expected LOS: <2 Midnights Patient will require the following post-hospital care: None Practitioner: I am a practitioner with admitting privileges, knowledge of patient current condition, hospital course, and medical plan of care. Services: Services provided to patient in accordance with Admission requirements found in Title 42 Section 412.3 of the Code of Federal Regulations Patient History Date of Service: 05/19/23 Reason for admission: Shortness of breath History of Present Illness: 58-year-old male with a past medical history of hypertension presents to the emergency room with neck swelling that started 1-1/2 hours prior to arrival. He reports associated shortness of breath. He reports recently starting on amlodipine. He takes lisinopril/HCTZ for hypertension. Admission ER evaluation after treatment in the emergency room. He denies shortness of breath, tongue swelling, neck swelling drooling, denies chest pain, denies cough, vital signsBP 142 / 98; Pulse 74; Resp 20 S; Temp 97.5(TE); Pulse Ox 98% on R/A; EKG rate is 65 beats/min. Rhythm is regular, Normal Sinus Rhyth with No ectopy. QRS [place] is Normal. MD interval is normal. QRS interval is normal. QT interval is normal. No Q waves. T waves are Normal. No ST changes noted patient treated with Solu- Medrol 125 IV x1, Benadryl 50 IVP x1. Famotidine 20 mg IVP x1, epinephrine 1- 1000 0.3 subcu x1. Laboratory evaluation CBC unremarkable. CMP hypocalcemia 8.3, chest x-ray IMPRESSION: No acute intrathoracic process suspected. Allergies No Known Allergies Allergy (Verified 04/16/23 20:39) Home Medications: Aspirin [Aspirin EC 81 MG] 81 mg PO DAILY #30 04/17/23 Hydralazine [Apresoline*] 10 mg PO BID #60 tab 04/24/23 - Past Medical/Surgical History Diabetic: No -: Hypertension -: Fatty liver -: None Psychosocial/ Personal History: Patient lives at home with his family, is self- employed. , social ETOH use - Social History Smoking Status: Never smoker Alcohol use: Yes CD- Drugs: No Caffeine use: No Review of Systems 10-point ROS is otherwise unremarkable Physical Examination - Physical Exam General: Alert, In no apparent distress, Oriented x3, Other (No tongue swelling, no drooling, O2 sats 100%) HEENT: Atraumatic, Normocephalic, PERRLA Neck: Supple, 2+ carotid pulse no bruit Respiratory: Clear to auscultation bilaterally, Normal air movement Cardiovascular: No edema, Normal pulses, Regular rate/rhythm Capillary refill: <2 Seconds Gastrointestinal: Normal bowel sounds, Non-distended Musculoskeletal: No clubbing, No swelling Integumentary: No rashes, No breakdown Neurological: Normal speech, Normal strength at 5/5 x4 extr, Normal tone - Studies Laboratory Data (last 24 hrs) 05/19/23 05/19/23 17:04 17:04 WBC 5.50 Hgb 14.9 Hct 43.0 Plt Count 175 Sodium 136 Potassium 3.6 BUN 11 Creatinine 0.77 Glucose 109 H Total Bilirubin 1.1 H AST 15 ALT 40 Alkaline Phosphatase 72 Assessment and Plan - Plan Assessment plan Angioedema likely from lisinopril versus amlodipine Essential hypertension Hyperlipidemia Alcohol use DVT prophylaxis Assessment plan Angioedema likely from lisinopril versus amlodipine Solu-Medrol, Pepcid, Benadryl, monitor airway BP 142 / 98; Pulse 74; Resp 20 S; Temp 97.5(TE); Pulse Ox 98% on R/A; Rate is 65 beats/min. Rhythm is regular, Normal Sinus Rhyth with No ectopy. QRS [place] is Normal. MD interval is normal. QRS interval is normal. QT interval is normal. No Q waves. T waves are Normal. No ST changes noted ER treated with Solu-Medrol 125 IV x1, Benadryl 50 IVP x1. Famotidine 20 mg IVP x1, epinephrine 1-1000 0.3 subcu x1. Laboratory evaluation CBC unremarkable. chest x-ray IMPRESSION: No acute intrathoracic process suspected. Essential hypertension Hyperlipidemia Resume appropriate home meds Alcohol use Educated on alcohol cessation, moderation DVT prophylaxis Full code Diet cardiac Discharge Plan: Home Plan to discharge in: 24 Hours - Advance Directives Does patient have a Living Will: No Does patient have a Durable POA for Healthcare: No - Code Status/Comfort Care Code Status: Full Code Physician Review: Patient Assessed, Agree with Above Assessment and Plan Critical Care: No Time Spent Managing Pts Care (In Minutes): 50
[2023-05-19] MEDS ORDERED: ONDANSETRON 4 MG/2 ML VIAL IV PRN (20:13)
[2023-05-19] MEDS ORDERED: DIPHENHYDRAMINE 50 MG/ML VIAL IV PRN (20:13)
[2023-05-19] MEDS ORDERED: ACETAMINOPHEN 500 MG TAB PO PRN (20:13)
[2023-05-19] MEDS: FAMOTIDINE 20 MG/2 ML VIAL IV SCH (21:22)
[2023-05-19 21:43] LABS: Specific Gravity 1.007 (1.005-1.030); Urine Bacteria None Seen /HPF (<20); Urine Bilirubin NEGATIVE (Negative); Urine Blood Trace (Negative); Urine Clarity Clear (Clear); Urine Color Light-Yellow (Yellow); Urine Glucose NEGATIVE (Negative); Urine Protein NEGATIVE (Negative); Urine RBC <5 /HPF (None Seen); Urine Urobilinogen Normal (Normal); Urine pH 5.5 (5.0-7.0)
[2023-05-19 22:05] VITALS: BMI 29.8
[2023-05-20 05:36] LABS: Absolute Lymphocytes (CBC) 0.9 K/uL (0.7-4.9); Hematocrit 44.1 % (39.6-49.0); Lymphocytes % 11.1 % (15.3-44.8); MCV 90.2 fL (80-100); MPV 8.3 fL (7.6-11.3); Platelets 186 thou/uL (152-406); RBC Red Blood Cell Count 4.89 M/uL (4.33-5.43)
[2023-05-20 05:51] LABS: Magnesium 2.1 mg/dL (1.6-2.4); Potassium 3.9 mEq/L (3.5-5.1)
[2023-05-20 08:28] VITALS: O2SAT 96
[2023-05-20] MEDS: FAMOTIDINE 20 MG/2 ML VIAL IV SCH (08:37)
[2023-05-20] MEDS ORDERED: hydroCHLOROthiazide 25 MG TAB PO ONE (08:44)
[2023-05-20] MEDS ORDERED: METHYLPREDNISOLONE 40 MG INJ IV SCH (09:00)
[2023-05-20] MEDS ORDERED: ASPIRIN EC 81 MG TAB PO SCH (09:00)
[2023-05-20] MEDS ORDERED: AMLODIPINE 10 MG TAB PO SCH (09:00)
[2023-05-20] MEDS ORDERED: METHYLPREDNISOLONE 125 MG INJ IV SCH ×2 (09:00)
[2023-05-20] MEDS ORDERED: METOPROLOL TAR 50 MG TAB PO SCH (09:00)
[2023-05-20 09:17] VITALS: BP 151/99; TEMP 97.2
--- NOTE | 2023-05-20 16:39 | EKG ---
Test Date: 2023-05-19 Test Time: 16:56:37 Able Bodied Watchman: FABIAN MEASUREMENT RESULTS: Intervals: Rate: 65 UT: 168 QRSD: 94 QT: 430 QTc: 447 [place]: P: 46 UT: 168 QRS: 46 T: -2 INTERPRETIVE STATEMENTS: Normal sinus rhythm Normal ECG Compared to ECG 05/04/2023 22:12:38 No significant changes Electronically Signed On 05-20-23 16:37:37 CDT by Juarez Ramey
--- NOTE | 2023-05-20 18:42 | P.DS ---
Admission Date: 05/19/23 Discharge Date: 05/20/23 Reason for Admission: Shortness of breath Hospital Course: Davion Andrade is a pleasant 58-year-old male with a past medical history significant for hypertension who was admitted to the [facility] on 05/19/2023 for angioedema. Davion Andrade presented to the ER with neck swelling associated with slurred shortness of breath that started an hour and a half prior to arrival. He reported recently starting on amlodipine and currently takes lisinopril/HCTZ for hypertension. Admission ER evaluation after treatment in the emergency room. Treatement involved Solu-Medrol, Pepcid, Benadryl, and monitoring airway, chest x-ray IMPRESSION: No acute intrathoracic process suspected. He was observed OVN with no complications noted. On 05/20/2023, Davion Andrade was seen on morning rounds and deemed medically stable for discharge. Davion Andrade was discharged with instructions to schedule follow-up appointments with Dr. Sexton, Dr. Estrada. Davion Andrade was provided prescriptions for steroids, EpiPen, Benadryl. The patient and family members were given the opportunity to ask questions and reported no further questions. Furthermore, all questions were answered to the best of my ability. A copy of this discharge summary will be sent to the above providers to facilitate continuity of care. Today, I personally spent 55 minutes with Davion Andrade, of which greater th an 50% of the time was spent in patient education, counseling, and coordination of care as described above. Physical Exam General: Alert, In no apparent distress, Oriented x3, Other (No tongue swelling, no drooling, O2 sats 100%) HEENT: Atraumatic, Normocephalic, PERRLA Neck: Supple, 2+ carotid pulse no bruit Respiratory: Clear to auscultation bilaterally, Normal air movement Cardiovascular: No edema, Normal pulses, Regular rate/rhythm Capillary refill: <2 Seconds Gastrointestinal: Normal bowel sounds, Non-distended Musculoskeletal: No clubbing, No swelling Integumentary: No rashes, No breakdown Neurological: Normal speech, Normal strength at 5/5 x4 extr, Normal tone Vital Signs/Physical Exam: Temp Pulse Resp BP Pulse Ox 97.2 F 78 17 151/99 H 96 05/20/23 08:00 05/20/23 08:00 05/20/23 08:00 05/20/23 08:00 05/20/23 08:00 Laboratory Data at Discharge: WBC 7.70 thou/uL (4.3-10.9) 05/20/23 05:05 Hgb 15.1 g/dL (13.6-17.9) 05/20/23 05:05 Hct 44.1 % (39.6-49.0) 05/20/23 05:05 Plt Count 186 thou/uL (152-406) 05/20/23 05:05 Sodium 135 mEq/L (136-145) L 05/20/23 05:05 Potassium 3.9 mEq/L (3.5-5.1) 05/20/23 05:05 BUN 15 mg/dL (7-18) 05/20/23 05:05 Creatinine 0.87 mg/dL (0.70-1.30) 05/20/23 05:05 Glucose 184 mg/dL (74-106) H 05/20/23 05:05 Magnesium 2.1 mg/dL (1.6-2.4) 05/20/23 05:05 Total Bilirubin 1.1 mg/dL (0.2-1.0) H 05/19/23 17:04 AST 15 U/L (15-37) 05/19/23 17:04 ALT 40 U/L (16-61) 05/19/23 17:04 Alkaline Phosphatase 72 U/L (45-117) 05/19/23 17:04 Home Medications: Aspirin [Aspirin EC 81 MG] 81 mg PO DAILY #30 04/17/23 Hydralazine [Apresoline*] 10 mg PO BID #60 tab 04/24/23 Amlodipine [Norvasc*] 10 mg PO DAILY tab 05/20/23 Diphenhydramine [Benadryl Tab/Cap] 25 mg PO Q6HP PRN #30 tab 05/20/23 Epinephrine [Epipen] 0.3 mg IJ PRN PRN #2 syr 05/20/23 Metoprolol Tartrate 100 mg PO DAILY 05/20/23 predniSONE [Deltasone] 20 mg PO BID #11 tab 05/20/23 New Medications: Diphenhydramine [Benadryl Tab/Cap] 25 mg PO Q6HP PRN #30 tab PRN Reason: Itching Epinephrine [Epipen] 0.3 mg IJ PRN PRN #2 syr PRN Reason: anaphlyaxis predniSONE [Deltasone] 20 mg PO BID #11 tab Physician Discharge Instructions: -DC IV and DC home -Follow-up with PCP in 1 to 2 weeks -Follow-up with Cardiology in 1 to 2 weeks -Please call Dr. Parra at [phone] if any questions regarding hospital stay -Please call nursing station at [phone] if any nursing or medication questions -Return to the emergency room if symptoms worsen Diet: AHA Activity: Fall precautions Followup: Jacques Tracey MD [Primary Care Provider] - 1-2 Weeks Juarez Ramey MD [ACTIVE - CAN ADMIT] - 1-2 Weeks Time spent managing pt's care (in minutes): 55
== END 2023-05-20 11:10 | disposition home or self-care (01) ==
LOC: ER 16:31 → ERHOLD 19:04 → 2ND 19:46
PROVIDERS: ADMIT Hospitalist; ATTEND Hospitalist
DX: T78.3XXA Angioneurotic edema, initial encounter (principal); I10 Essential (primary) hypertension; E78.5 Hyperlipidemia, unspecified; F10.90 Alcohol use, unspecified, uncomplicated; K76.0 Fatty (change of) liver, not elsewhere classified
CPT/HCPCS: 93005; 85025 ×2; 81001; 80048; 36415; 83735; 84484; 80053; 71045; 96375; 96372; 96374; 99285; J0171; J1200 ×2; J2930 ×2; J2920; G0378